=== PATIENT | female | born 1935 | race Caucasian/White ===

== ENCOUNTER → 2019-05-28 14:22 | Outpatient (BNVA) | payer MEDICARE, OTHER, SELFPAY | PROVIDERS: Family Provider Family Medicine; PCP Family Medicine; Visit Provider Specialist | DX: M25.561 Pain in right knee (principal) | CPT/HCPCS: 73560; 73565 ==

== ENCOUNTER 2019-06-12 06:00 | Outpatient (RCR) | payer MEDICARE, OTHER, SELFPAY | END 2019-06-22 23:59 | disposition home or self-care (01) | LOC: SPT 06:00 | PROVIDERS: Family Provider Family Medicine; PCP Family Medicine; Referring Provider Specialist; Visit Provider Physical Therapist | DX: M25.561 Pain in right knee (principal) | CPT/HCPCS: 97110; 97161 ==

== ENCOUNTER 2019-06-23 06:00 | Outpatient (RCR) | payer MEDICARE, OTHER, SELFPAY | END 2019-07-21 23:59 | disposition home or self-care (01) | LOC: SPT 06:00 | PROVIDERS: Family Provider Family Medicine; PCP Family Medicine; Referring Provider Specialist; Visit Provider Specialist | DX: M25.561 Pain in right knee (principal) | CPT/HCPCS: 97110 ==

== ENCOUNTER 2019-07-22 06:00 | Outpatient (RCR) | payer MEDICARE, OTHER, SELFPAY | END 2019-08-21 23:59 | disposition home or self-care (01) | LOC: SPT 06:00 | PROVIDERS: Family Provider Family Medicine; PCP Family Medicine; Referring Provider Specialist; Visit Provider Specialist | DX: M25.561 Pain in right knee (principal) | CPT/HCPCS: 97110 ==

== ENCOUNTER 2019-08-22 06:00 | Outpatient (RCR) | payer MEDICARE, OTHER, SELFPAY | END 2019-09-20 23:59 | disposition home or self-care (01) | LOC: SPT 06:00 | PROVIDERS: Family Provider Family Medicine; PCP Family Medicine; Referring Provider Specialist; Visit Provider Specialist | DX: M25.561 Pain in right knee (principal) | CPT/HCPCS: 97110 ==

== ENCOUNTER → 2019-11-15 13:34 | Outpatient (BNVA) | payer MEDICARE, OTHER, SELFPAY | PROVIDERS: Family Provider Family Medicine; PCP Family Medicine; Visit Provider Specialist | DX: M17.11 Unilateral primary osteoarthritis, right knee (principal); M25.552 Pain in left hip; Z96.642 Presence of left artificial hip joint; M21.372 Foot drop, left foot; Z96.652 Presence of left artificial knee joint | CPT/HCPCS: 73502; 73560; 73565 ==

== ENCOUNTER → 2020-03-04 15:14 | Outpatient (BNVA) | payer MEDICARE, OTHER, SELFPAY | PROVIDERS: Family Provider Family Medicine; PCP Family Medicine; Visit Provider Nurse Practitioner Family | DX: N39.0 Urinary tract infection, site not specified (principal); R35.0 Frequency of micturition | CPT/HCPCS: 81001 ==

== ENCOUNTER 2020-03-27 13:06 | Outpatient (CLI) | payer MEDICARE, OTHER, SELFPAY ==
--- NOTE | 2020-03-30 08:58 | ONC FU_ITS ---
Dr. Browning Patient Follow-Up Note Patient: Olga Scales Unit #: [id number]: 1935 Dicatated By: Michael Browning M.D.Date of Visit:Mar 27, 2020 Onc Med Follow-up/Prog Note Chief Complaint: Breast cancer. 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 She had presented with a change in her right nipple. She was evaluated with mammogram and ultrasound which showed a highly suspicious lesion in the central aspect of the right breast in the 1 to 2 o'clock position. By mammogram it measured 2.9 x 3.4 cm. She was then referred to Dr. Dominguez. He noted a firm mass in the 1 o'clock position of the right breast just under the edge of the areola. There was a 1 cm lymph node palpable in the lower aspect of the right axilla. She underwent excisional biopsy and right sentinel axillary lymph node biopsy on 11/16/2012. Pathology showed grade 2/3 infiltrating ductal carcinoma measuring 2.6 x 2.4 cm. Tumor was identified within lymphovascular spaces. There was tumor within 8 mm at the anterior margin. All other margins were greater than 1 cm. There was metastatic tumor in 2 of 3 axillary lymph nodes. The largest metastatic focus measured 1.6 cm in cross sectional diameter. The breast prognostic profile shows the tumor he are positive at 97% and LA moderately positive at 1%. It was positive for overexpression of HER-2/marvin, 3+ by IHC. The tumor did not appear to have over amplification by FISH, with the amplification ratio reported at 1.39. She opted to have breast conservation management. She initially was given adjuvant chemotherapy with TCH. As of 03/27/2013 she had completed her sixth cycle of treatment. She was then given radiation to the right breast, completed on 06/25/2013 to a total dose of 5940 cGy. She continued Herceptin thru November 2013, at which point she had completed a year of treatment. She also had started adjuvant hormonal therapy with anastrozole as of July 2013. At her scheduled followup visit on 12/27/2017 she was having significant pain in the left groin area and she had additional joint pain and lower back pain. I felt that it was likely that at least some component of the pain was related to the anastrozole, which at that point was stopped. In the meantime, x-rays of the pelvis and left hip showed severe degenerative arthritic changes of the left hip joint with protrusion of the acetabulum. It was felt to likely be secondary to osteoarthritis. She was seen by Dr. Ferguson, and she ultimately underwent left total hip arthroplasty on 07/25/2018. Her other medical illnesses include hypertension, hyperlipidemia, and asthma. She is a nonsmoker. INTERIM HISTORY: She is seen for a followup visit. She has been feeling pretty good generally. She says her energy is generally good in the morning, but terrible by afternoon. She is able to do light work. ECOG score is 1. She has good appetite. She does not have fever or night sweats. She still has hot flashes a lot. She has some shortness of breath, and she does use an albuterol inhaler twice a day. Her breathing, though, is pretty good. He does not complain of cough and she has not been having chest pain. She has no GI complaints. She has had some episodes of cystitis and she does follow with Dr. Dawkins. She has been having significant pain in her right knee. She still has the foot drop on the left. She has no other focal neurologic symptoms. She does complain that she has a lot of depression. She has chronic insomnia. Medications: Ambien 1 Tablet (of 10 mg) Oral at bedtime PRN, Bactrim DS Tablet Oral PRN, D3 High Potency 1 Tablet (of 400 Units) Oral daily, Hydrocodone-Acetaminophen 1 Tablet (of 7.5-325 mg) Oral q 4 to 6 hours PRN, Klor-Con 10 1 Tablet (of 10 meq) Tablet, controlled release Oral b.i.d., LORazepam 0.5 Tablet (of 1 mg) Oral at bedtime PRN, Lyrica 1 Capsule (of 75 mg) Oral PRN, Magnesium Oxide 1 Tablet (of 400 (241.3 Mg) mg) Tablet Oral daily, Multivitamin Women 1 Tablet Oral daily, ProAir HFA Aerosol, solution 108 (90 Base) mcg/act - 1 Inhalation daily, traZODone HCl 1 Tablet (of 50 mg) Oral at bedtime Allergies: No Known Allergies. Review of Systems: Constitutional - She says her energy is good in the morning, but terrible by afternoon. She is able to do light work. Her appetite is good. She has not had fever or night sweats. She does have hot flashes a lot. ECOG score is 1, ENMT - She has a lot of allergies. No mouth sores. No sore throat or difficulty swallowing, Hematologic/Lymphatic - No abnormal bruising or bleeding, Respiratory - She has some shortness of breath, and she uses albuterol twice daily on a schedule. Her breathing, though, has been pretty good. No cough. No pleuritic pain or hemoptysis, Cardiovascular - No angina pain. No palpitations, Gastrointestinal - No nausea or vomiting. No heartburn or acid reflux. She still has diarrhea a lot. No blood in the stool or black stools, Genitourinary (F) - She has had episodes of cystitis. She has followed with Dr. Dawkins. No hematuria. No urgency or incontinence, Musculoskeletal - She has been having significant pain in her right knee, Integumentary - No skin rash, Neurologic - No headache or dizziness. No numbness or tingling. She still requires a brace on her left leg/foot. She has no other focal neurologic symptoms, Psychiatric - She has had a lot of depression. She has chronic insomnia. She does get benefit with medication. Vital Signs: Performed on Mar 27, 2020 13:35 Height - 63.00 in Weight - 141.2 lbs (HIGH) BSA - 1.67 sq.m BMI - 25.01 Temperature - 97.7 F (LOW) Pulse - 67 /min Respiration - 20 /min BP - 187/82 mm(hg) (HIGH) O2 Sat - 96 % Pain - 0 Physical Examination: Constitutional - She looks pretty good generally, Eyes - Sclerae nonicteric. Conjunctivae clear, ENMT - No lesions noted in the oral cavity, Hematologic/Lymphatic - No cervical or clavicular adenopathy, Respiratory - Lungs are clear, Cardiovascular - Heart rhythm is regular. There is no murmur, gallop, or rub noted, Breasts - There are no breast masses noted. There is no axillary adenopathy, Abdomen - Soft. Liver and spleen are not enlarged. There is no abdominal mass or ascites noted and there is no inguinal adenopathy, Extremities - No edema, Neurologic - She has persistent foot drop on the left. There are no other focal neurologic deficits noted. Impression: 1. Patient with grade 2 infiltrating ductal carcinoma of the right breast, stage IIB, ER/LA positive and HER-2/marvin positive. 2. She underwent lumpectomy/sentinel axillary lymph node biopsy on 11/16/2012. 3. She was given adjuvant chemotherapy with 6 cycles TCH, completed in March 2013. She then completed a full year of Herceptin. 4. Following the chemotherapy she was given radiation to the right breast, completed in June 2013 to 5940 cGy. 5. She began adjuvant hormonal therapy with anastrazole in July 2013. Her other medical illnesses include: 6. Hypertension. 7. Hyperlipidemia. 8. Mild asthma. 9. Chronic anxiety. She had reported significant musculoskeletal pain and fatigue following the chemotherapy, but with gradual improvement. At her scheduled follow-up on 12/27/2017 she reported significant pain in the left hip joint. She also complained of pain in the lower back and in both knees. Anastrozole was put on hold. X-rays of the pelvis and left hip showed severe degenerative arthritis changes of the left hip joint. She was then seen by Dr. Ferguson and she ultimately underwent left total hip arthroplasty in July 2018. She has had persistent left foot drop following that procedure. She has since then been followed on observation/expectant management for the breast cancer. She has some chronic fatigue, and she is now reporting more significant pain in the right knee. Overall, though, she appears to be doing well clinically. Thus far there has been no evidence of recurrence of the breast cancer. Plan: She remains on observation/expectant management. She will be scheduled for her yearly bilateral diagnostic mammogram, which is overdue. I will see her again in 1 year. Signed By: Michael Browning M.D. <<Signature on File>>
== END 2020-03-27 13:07 | disposition home or self-care (01) ==
LOC: ONCMED 13:10
PROVIDERS: PCP Family Medicine; Visit Provider Internal Medicine Medical Oncology
DX: Z08 Encounter for follow-up examination after completed treatment for malignant neoplasm (principal); Z85.3 Personal history of malignant neoplasm of breast; Z92.21 Personal history of antineoplastic chemotherapy; Z92.23 Personal history of estrogen therapy; Z92.3 Personal history of irradiation
CPT/HCPCS: G0463

== ENCOUNTER 2020-04-07 09:39 | Outpatient (CLI) | payer MEDICARE, OTHER, SELFPAY ==
--- NOTE | 2020-04-07 09:49 | MM_ITS ---
WS: [id number] DIAGNOSTIC BILATERAL DIGITAL MAMMOGRAM WITH CAD HISTORY: HX OF BREAST CA COMPARISON: 01/05/2019 and 12/21/2016 TECHNIQUE: Bilateral craniocaudad, mediolateral oblique, and mediolateral views are submitted. Comput er aided detection utilized. Breast composition: The breasts are heterogeneously dense, which may obscure small masses. Postsurgic al scarring and volume loss in the RIGHT breast. Rodlike dystrophic calcifications throughout the RIG HT breast. There is an area of soft tissue thickening and distortion from the prior surgery and mild thickening of the trabecular pattern. Stable appearance of the LEFT breast. There are benign rodlike calcifications. No distortion. MM/[place] [id number] IMPRESSION: BI-RADS: 2-Benign FOLLOW UP: 1 Year Follow-up
== END 2020-04-07 09:40 | disposition home or self-care (01) ==
LOC: RADSHAW 09:44
PROVIDERS: PCP Family Medicine; Visit Provider Internal Medicine Medical Oncology
DX: Z85.3 Personal history of malignant neoplasm of breast (principal)
CPT/HCPCS: 77066

== ENCOUNTER → 2020-11-12 13:54 | Outpatient (BNVA) | payer MEDICARE, OTHER, SELFPAY | PROVIDERS: PCP Family Medicine; Visit Provider Specialist | DX: M25.561 Pain in right knee (principal); M17.11 Unilateral primary osteoarthritis, right knee | CPT/HCPCS: 73560; 73565 ==

== ENCOUNTER → 2021-03-04 13:09 | Outpatient (BNVA) | payer MEDICARE, OTHER, SELFPAY | PROVIDERS: PCP Family Medicine; Visit Provider Urology | DX: N39.0 Urinary tract infection, site not specified (principal) | CPT/HCPCS: 81003 ==

== ENCOUNTER 2021-04-09 11:02 | Outpatient (CLI) | payer MEDICARE, OTHER, SELFPAY ==
--- NOTE | 2021-04-09 11:22 | MM_ITS ---
WS: [id number] BILATERAL DIGITAL DIAGNOSTIC MAMMOGRAM MAMMOGRAPHY WITH CAD CLINICAL INFORMATION: HX OF BREAST CA RIGHT BREAST SORENESS. COMPARISON: April 07, 2020. TECHNIQUE: Bilateral CC, MLO, and ML views. FINDINGS: The breasts are composed of heterogeneous fibroglandular density, which can limit the detection of sm all underlying mass lesions. Stable postoperative lumpectomy changes upper outer right breast with pa renchymal fibrosis. Stable dystrophic and lucent centered calcifications. Bilateral stable secretory calcifications. No suspicious focal mass, asymmetry, calcifications, or architectural distortion. No evidence of [place] gnancy. MM/[place] [id number] IMPRESSION: BI-RADS: 2-Benign FOLLOW UP: 1 Year Follow-up Recommend return to annual diagnostic mammography.
== END 2021-04-09 11:03 | disposition home or self-care (01) ==
LOC: RADSHAW 11:07
PROVIDERS: PCP Family Medicine; Visit Provider Internal Medicine Medical Oncology
DX: Z85.3 Personal history of malignant neoplasm of breast (principal); N64.4 Mastodynia
CPT/HCPCS: 77066

== ENCOUNTER 2021-05-06 12:37 | Outpatient (CLI) | payer MEDICARE, OTHER, SELFPAY ==
--- NOTE | 2021-05-10 10:21 | ONC FU_ITS ---
Dr. Browning Patient Follow-Up Note Patient: Olga Scales Unit #: [id number]: 1935 Dicatated By: Michael Browning M.D.Date of Visit:May 06, 2021 Onc Med Follow-up/Prog Note Chief Complaint: Breast cancer. History of Present Illness: This is an 85 year-old woman with grade 2 invasive ductal carcinoma of the right breast, stage IB (T2, pN1a, M0), ER/CT positive and HER-2/marvin positive. She had presented with a change in her right nipple. She was evaluated with mammogram and ultrasound which showed a highly suspicious lesion in the central aspect of the right breast in the 1 to 2 o'clock position. By mammogram it measured 2.9 x 3.4 cm. She was then referred to Dr. Dominguez. He noted a firm mass in the 1 o'clock position of the right breast just under the edge of the areola. There was a 1 cm lymph node palpable in the lower aspect of the right axilla. She underwent excisional biopsy and right sentinel axillary lymph node biopsy on 11/16/2012. Pathology showed grade 2/3 infiltrating ductal carcinoma measuring 2.6 x 2.4 cm. Tumor was identified within lymphovascular spaces. There was tumor within 8 mm at the anterior margin. All other margins were greater than 1 cm. There was metastatic tumor in 2 of 3 axillary lymph nodes. The largest metastatic focus measured 1.6 cm in cross sectional diameter. The breast prognostic profile shows the tumor he are positive at 97% and CT moderately positive at 1%. It was positive for overexpression of HER-2/marvin, 3+ by IHC. The tumor did not appear to have over amplification by FISH, with the amplification ratio reported at 1.39. She opted to have breast conservation management. She initially was given adjuvant chemotherapy with TCH. As of 03/27/2013 she had completed her sixth cycle of treatment. She was then given radiation to the right breast, completed on 06/25/2013 to a total dose of 5940 cGy. She continued Herceptin thru November 2013, at which point she had completed a year of treatment. She also had started adjuvant hormonal therapy with anastrozole as of July 2013. At her scheduled followup visit on 12/27/2017 she was having significant pain in the left groin area and she had additional joint pain and lower back pain. I felt that it was likely that at least some component of the pain was related to the anastrozole, which at that point was stopped. In the meantime, x-rays of the pelvis and left hip showed severe degenerative arthritic changes of the left hip joint with protrusion of the acetabulum. It was felt to likely be secondary to osteoarthritis. She was seen by Dr. Ferguson, and she ultimately underwent left total hip arthroplasty on 07/25/2018. Her other medical illnesses include hypertension, hyperlipidemia, and asthma. She is a nonsmoker. INTERIM HISTORY: She is seen for a followup visit. She has been feeling pretty good generally. She has not having more problems with her right knee, and she thinks she may ultimately require a total knee arthroplasty. She has pretty good energy, though, and she has normal activity. ECOG score is 0. Her appetite is good. She has not had fever or night sweats. She still occasionally has hot flashes. She has a lot of allergy related symptoms, and she still uses her inhaler twice a day. Her breathing is okay, though. She does not complain of cough and she has not been having chest pain. She still occasionally has nausea. She is prone to having diarrhea, but she is able to manage it with Imodium. She has seen Dr. Dawkins for recurrent urinary tract infections. She also has some pain in her hips, not bad. Her back has been okay. She does not complain of headache or dizziness. She does have some residual numbness in her left leg. Medications: Ambien 1 Tablet (of 10 mg) Oral at bedtime PRN, Bactrim DS Tablet Oral PRN, D3 High Potency 1 Tablet (of 400 Units) Oral daily, Hydrocodone-Acetaminophen 1 Tablet (of 7.5-325 mg) Oral q 4 to 6 hours PRN, Klor-Con 10 1 Tablet (of 10 meq) Tablet, controlled release Oral b.i.d., LORazepam 0.5 Tablet (of 1 mg) Oral at bedtime PRN, Lyrica 1 Capsule (of 75 mg) Oral PRN, Magnesium Oxide 1 Tablet (of 400 (241.3 Mg) mg) Tablet Oral daily, Multivitamin Women 1 Tablet Oral daily, Pregabalin 1 Tablet (of 75 mg) Capsule Oral daily, ProAir HFA Aerosol, solution 108 (90 Base) mcg/act - 1 Inhalation daily, traZODone HCl 1 Tablet (of 50 mg) Oral at bedtime Allergies: No Known Allergies. Vital Signs: Performed on May 06, 2021 16:31 Height - 63.00 in Weight - 145.2 lbs (HIGH) BSA - 1.69 sq.m BMI - 25.72 Temperature - 98.3 F (LOW) Pulse - 70 /min Respiration - 16 /min BP - 158/81 mm(hg) (HIGH) O2 Sat - 96 % Pain - 0 Fatigue - 6 Physical Examination: Constitutional - She looks pretty good generally, Eyes - Sclerae nonicteric. Conjunctivae clear, ENMT - No lesions noted in the oral cavity, Hematologic/Lymphatic - No cervical or clavicular adenopathy, Respiratory - Lungs are clear, Cardiovascular - Heart rhythm is regular. There is no murmur, gallop, or rub noted, Breasts - There are no breast masses noted. There is no axillary adenopathy, Abdomen - Soft. Liver and spleen are not enlarged. There is no abdominal mass or ascites noted and there is no inguinal adenopathy, Extremities - No edema, Neurologic - She has persistent foot drop on the left. There are no other focal neurologic deficits noted. Problem List: 1. Grade 2 infiltrating ductal carcinoma of the right breast, stage IIB, ER/CT positive and HER-2/marvin positive. 2. Hypertension. 3. Hyperlipidemia. 4. Mild asthma. 5. Chronic anxiety. Problems Addressed with this Encounter and Plan: Patient with grade 2 infiltrating ductal carcinoma of the right breast, stage IIB, ER/CT positive and HER-2/marvin positive. She underwent lumpectomy/sentinel axillary lymph node biopsy on 11/16/2012. She was given adjuvant chemotherapy with 6 cycles TCH, completed in March 2013. She then completed a full year of Herceptin. Following the chemotherapy she was given radiation to the right breast, completed in June 2013 to 5940 cGy. She began adjuvant hormonal therapy with anastrazole in July 2013. Her treatment was stopped as of December 2017 due to increased musculoskeletal pain. She was then continued on expectant management for the breast cancer. During follow-up she has had further problems with degenerative arthritis. She underwent left total hip arthroplasty in July 2018, and she now thinks she may need to have a total knee arthroplasty. Overall, though, she has been doing well clinically. Thus far there has been no evidence of recurrence of her breast cancer. She remains on observation/expectant management. She will be scheduled for a follow-up visit in 1 year Signed By: Michael Browning M.D. <<Signature on File>>
== END 2021-05-06 12:38 | disposition home or self-care (01) ==
LOC: ONCMED 12:40
PROVIDERS: PCP Family Medicine; Visit Provider Internal Medicine Medical Oncology
DX: Z85.3 Personal history of malignant neoplasm of breast (principal); M79.18 Myalgia, other site; I10 Essential (primary) hypertension; E78.5 Hyperlipidemia, unspecified; J45.909 Unspecified asthma, uncomplicated; F41.9 Anxiety disorder, unspecified; Z79.899 Other long term (current) drug therapy
CPT/HCPCS: G0463

== ENCOUNTER 2021-07-07 13:08 | Outpatient (CLI) | payer MEDICARE, OTHER, SELFPAY ==
[2021-07-07 13:58] LABS: Basophils # 0.1 10^3/uL (0.0-0.1); Basophils % 0.8 %; Eosinophils # 0.1 10^3/uL (0.0-0.8); Hematocrit 44.3 % (37.0-47.0); Hemoglobin 14.2 g/dL (11.5-15.3); Lymphocytes # 1.6 10^3/uL (0.8-4.8); Lymphocytes % 22.5 %; Mean Corpuscular HGB Conc 32.1 g/dL (30.0-36.0); Mean Corpuscular Volume 90.6 fl (81-99); Mean Platelet Volume 10.5 fL (7.4-10.4); Monocytes # 0.5 10^3/uL (0.2-0.9); Monocytes % 7.3 %; Neutrophils # 4.76 10^3/uL (1.8-7.7); Neutrophils % 67.1 %; Nucleated Red Blood Cells % 0 %; Platelet Count 149 10^3/cmm (130-400); Red Blood Count 4.89 10^6/uL (4.1-5.3); Red Cell Distribution Width 13.9 % (12.1-15.1); White Blood Count 7.1 10^3/uL (4.0-10.0)
[2021-07-07 14:22] LABS: Alanine Aminotransferase 14 U/L (0-33); Albumin Level 4.5 g/dL (3.5-5.2); Alkaline Phosphatase 125 IU/L (35-105); Anion Gap 16.1 (5-19); Aspartate Amino Transferase 20 U/L (0-32); Blood Urea Nitrogen 14 mg/dL (8-23); Calcium 8.6 mg/dL (8.5-10.5); Carbon Dioxide 26 mmol/L (22-29); Chloride 104 mmol/L (98-107); Chol HDL Ratio 3.76 mg/dL (0.0-4.40); Cholesterol 158 mg/dL (0-200); Glucose 94 mg/dL (65-115); HDL Cholesterol 42 mg/dL (60-100); LDL Cholesterol Calculated 99 mg/dL (50-129); LDL HDL Ratio 2.36 RATIO (0.00-3.22); Osmolality Calculated 294 mOsm/kg (285-295); Potassium 4.1 mmol/L (3.5-5.1); Sodium 142 mmol/L (136-145); Total Bilirubin 0.4 mg/dL (0.15-1.2); Total Protein 6.5 g/dL (6.6-8.7); Triglycerides 84 mg/dL (0-150)
== END 2021-07-07 13:09 | disposition home or self-care (01) ==
PROVIDERS: PCP Family Medicine; Visit Provider Internal Medicine Medical Oncology
DX: Z85.3 Personal history of malignant neoplasm of breast (principal); I10 Essential (primary) hypertension; E78.5 Hyperlipidemia, unspecified; F41.9 Anxiety disorder, unspecified; J45.909 Unspecified asthma, uncomplicated
CPT/HCPCS: 36415; 80053; 80061; 85025

== ENCOUNTER → 2021-08-10 13:03 | Outpatient (BNVA) | payer MEDICARE, OTHER, SELFPAY | PROVIDERS: PCP Family Medicine; Visit Provider Specialist | DX: M25.561 Pain in right knee (principal) | CPT/HCPCS: 73560; 73565 ==

== ENCOUNTER → 2021-10-08 07:59 | Outpatient (BNVA) | payer MEDICARE, OTHER, SELFPAY | PROVIDERS: PCP Family Medicine; Visit Provider Specialist | DX: M17.11 Unilateral primary osteoarthritis, right knee (principal); Z71.89 Other specified counseling | CPT/HCPCS: 20610 ==

== ENCOUNTER → 2022-02-02 12:08 | Outpatient (BNVA) | payer MEDICARE, OTHER, SELFPAY | PROVIDERS: PCP Family Medicine; Visit Provider Family Medicine | DX: J45.909 Unspecified asthma, uncomplicated (principal); E78.5 Hyperlipidemia, unspecified; F41.9 Anxiety disorder, unspecified; I10 Essential (primary) hypertension | CPT/HCPCS: 80053; 80061 ==

== ENCOUNTER → 2022-02-04 09:19 | Outpatient (BNVA) | payer MEDICARE, OTHER, SELFPAY | PROVIDERS: PCP Family Medicine; Visit Provider Specialist | DX: M17.11 Unilateral primary osteoarthritis, right knee (principal) | CPT/HCPCS: 20610; J1100; J2795; J3301 ==

== ENCOUNTER → 2022-03-04 12:06 | Outpatient (BNVA) | payer MEDICARE, OTHER, SELFPAY | PROVIDERS: PCP Family Medicine; Visit Provider Urology | DX: N39.0 Urinary tract infection, site not specified (principal) | CPT/HCPCS: 81003; 99213 ==

== ENCOUNTER 2022-04-14 12:33 | Outpatient (CLI) | payer MEDICARE, OTHER, SELFPAY ==
--- NOTE | 2022-04-14 13:14 | MM_ITS ---
WS: [id number] BILATERAL 3D TOMOSYNTHESIS DIGITAL DIAGNOSTIC MAMMOGRAPHY WITH CAD CLINICAL INFORMATION: history of breast cancer COMPARISON: April 14, 2022 TECHNIQUE: Bilateral CC, MLO, and ML views. FINDINGS: Scattered fibroglandular densities bilaterally. Stable postoperative lumpectomy changes upper outer r ight breast with parenchymal fibrosis. Stable skin thickening RIGHT breast due to posttreatment heaton es. Stable dystrophic and lucent centered calcifications. Bilateral stable secretory calcifications. No suspicious focal mass, asymmetry, calcifications, or architectural distortion. No evidence of [place] gnancy. MM/[place] [id number] IMPRESSION: BI-RADS: 2-Benign FOLLOW UP: 1 Year Follow-up Recommend return to annual diagnostic mammography.
== END 2022-04-14 12:34 | disposition home or self-care (01) ==
LOC: RAD 12:33
PROVIDERS: PCP Family Medicine; Visit Provider Internal Medicine Medical Oncology
DX: Z85.3 Personal history of malignant neoplasm of breast (principal)
CPT/HCPCS: 77062; G0279

== ENCOUNTER → 2022-04-29 16:09 | Outpatient (BNVA) | payer MEDICARE, OTHER, SELFPAY | PROVIDERS: PCP Family Medicine; Visit Provider Urology | DX: N39.0 Urinary tract infection, site not specified (principal) | CPT/HCPCS: 51798; 99213 ==

== ENCOUNTER → 2022-05-03 10:41 | Outpatient (BNVA) | payer MEDICARE, OTHER, SELFPAY | PROVIDERS: PCP Family Medicine; Visit Provider Specialist | DX: M17.11 Unilateral primary osteoarthritis, right knee (principal) | CPT/HCPCS: 99214 ==

== ENCOUNTER 2022-05-20 07:30 | Outpatient (CLI) | payer MEDICARE, OTHER, SELFPAY ==
--- NOTE | 2022-05-20 07:00 | CT_ITS ---
WS: [id number] CT RIGHT KNEE, NONCONTRAST TECHNIQUE: Noncontrast CT of the RIGHT knee to include the RIGHT hip and ankle. [place] CLINICAL INFORMATION: pre operative DLP: 946.[address] scans at [facility] use at least one of these dose optimization techniques: automated e xposure control; mA and/or kV adjustment per patient size (includes targeted exams where dose is matc hed to clinical indication); or iterative reconstruction. FINDINGS: Advanced tricompartmental arthritis RIGHT knee worse in medial joint compartment with [id number] ar ticulation. Osteopenia. Hypertrophic changes along the joint line. Prior postoperative changes LEFT T DIXON. Hypertrophic patella. Small suprapatellar effusion. Small loose body in the suprapatellar effusio n. Vascular calcification. Sigmoid diverticulosis. CT/CT knee RT wo con* [id number] IMPRESSION: Images obtained for preoperative purposes.
== END 2022-05-20 07:31 | disposition home or self-care (01) ==
LOC: RAD 07:30
PROVIDERS: PCP Family Medicine; Visit Provider Specialist
DX: Z01.818 Encounter for other preprocedural examination (principal); M17.11 Unilateral primary osteoarthritis, right knee
CPT/HCPCS: 73700

== ENCOUNTER 2022-05-21 08:00 | Oncology outpatient (recurring) (ONCR) | payer MEDICARE, OTHER, SELFPAY | END 2022-05-22 23:59 | disposition home or self-care (01) | PROVIDERS: PCP Family Medicine; Visit Provider Internal Medicine Medical Oncology | DX: Z08 Encounter for follow-up examination after completed treatment for malignant neoplasm (principal); Z85.3 Personal history of malignant neoplasm of breast; Z92.3 Personal history of irradiation; Z92.21 Personal history of antineoplastic chemotherapy; Z92.25 Personal history of immunosuppression therapy | CPT/HCPCS: 99213 ==

== ENCOUNTER 2022-05-25 11:36 | Outpatient (CLI) | payer MEDICARE, OTHER, SELFPAY | END 2022-05-25 11:37 | disposition home or self-care (01) | LOC: RT 05-31 11:50 | PROVIDERS: PCP Family Medicine; Visit Provider Specialist | DX: Z13.6 Encounter for screening for cardiovascular disorders (principal); R00.1 Bradycardia, unspecified; R00.9 Unspecified abnormalities of heart beat | CPT/HCPCS: 93005 ==

== ENCOUNTER 2022-06-01 13:17 | Observation (INO) | payer MEDICARE, OTHER, SELFPAY ==
[2022-05-25 10:39] VITALS: BMI 25.7
--- NOTE | 2022-05-25 11:14 | ECG_ITS ---
[facility] Test Date: 2022-05-25 Pat Name: Olga Scales Department: Room: Gender: Female Nuclear Engineer: : 1935 Requested By: Cali Gibson Order Number: [id number] Per MD: Olivier Armstrong M.D. Measurements Intervals [place] Rate: 58 P: 259 MN: 137 QRS: 8 QRSD: 95 T: 73 QT: 433 QTc: 427 Interpretive Statements JUNCTIONAL BRADYCARDIA ABNORMAL RHYTHM ECG Compared to ECG 07/05/2018 14:53:49 Junctional rhythm no longer present Electronically Signed On 05-25-2022 20:48:31 BANK BOSS by Olivier Armstrong M.D. [id number]
[2022-05-25 12:20] LABS: Basophils # 0.1 10^3/uL (0.0-0.1); Basophils % 1.3 %; Eosinophils # 0.1 10^3/uL (0.0-0.8); Hematocrit 41.2 % (37.0-47.0); Hemoglobin 13.1 g/dL (11.5-15.3); Lymphocytes # 0.9 10^3/uL (0.8-4.8); Lymphocytes % 23.7 %; Mean Corpuscular HGB Conc 31.8 g/dL (30.0-36.0); Mean Corpuscular Hemoglobin 29.9 pg (28.0-34.0); Mean Corpuscular Volume 94.1 fl (81-99); Mean Platelet Volume 10.3 fL (7.4-10.4); Monocytes # 0.3 10^3/uL (0.2-0.9); Monocytes % 7.9 %; Neutrophils # 2.54 10^3/uL (1.8-7.7); Neutrophils % 64.8 %; Nucleated Red Blood Cells % 0 %; Platelet Count 150 10^3/cmm (130-400); Red Blood Count 4.38 10^6/uL (4.1-5.3); Red Cell Distribution Width 14.4 % (12.1-15.1); White Blood Count 3.9 10^3/uL (4.0-10.0)
[2022-05-25 12:38] LABS: Alanine Aminotransferase 15 U/L (0-33); Albumin Level 4.3 g/dL (3.5-5.2); Alkaline Phosphatase 104 U/L (35-105); Anion Gap 14.3 (5-19); Aspartate Amino Transferase 18 U/L (0-32); Blood Urea Nitrogen 21 mg/dL (8-23); Calcium 8.9 mg/dL (8.5-10.5); Carbon Dioxide 25 mmol/L (22-29); Chloride 105 mmol/L (98-107); Glucose 94 mg/dL (65-115); Osmolality Calculated 293 mOsm/kg (285-295); Potassium 4.3 mmol/L (3.5-5.1); Sodium 140 mmol/L (136-145); Total Bilirubin 0.2 mg/dL (0.15-1.2); Total Protein 6.3 g/dL (6.6-8.7)
[2022-05-25 13:50] LABS: Add Urine Microscopic? YES; Bilirubin Urine Neg (Negative); Blood Urine Trace (Negative); Glucose Urine UA Norm (Normal); Ketones Urine Negative (Negative); Leukocyte Esterase Urine 2+ (Negative); Nitrate Urine Negative (Negative); Protein Urine Trace (Negative); Urine Appearance Clear (CLEAR); Urine Color Yellow (Yellow); Urobilinogen Urine Norm (Negative); pH Urine 5 (5-7)
[2022-05-25 13:51] LABS: Bacteria Urine 1+ /hpf; Calcium Oxalate Crystals Urine 0-4 /hpf; RBC Urine RARE /hpf (0-2); Squamous Epithelial Cell Urine 0-4 /hpf (0-5); Triple Phosphate Crystal Urine 80-100 /hpf; WBC Urine 0-4 /hpf (0-5)
--- NOTE | 2022-05-25 14:14 | P.ANESASSM_ITS ---
Pre-Anesthetic Assessment Height/Weight: Height 1.59 m Weight 64.864 kg Operation Date: 06/01/22 07:00 Proposed Procedures p Germán Robot Total Knee Arthroplasty 05620,M17.10(Right) - Dina Ferguson MD Familial anesthetic complications: none Was Beta Anisha taken within 24 hours: N/A Was Clonidine taken within 24 hours: N/A Social No alcohol and No tobacco Exam alert, oriented x 3, clear to auscultation bilaterally and regular rate & rhythm Airway Submandibular: within normal limits Cervical ROM: within normal limits Mallampati: Class II Dentition: full Pulmonary Asthma Metabolic Hyperlipidemia Musc/skel Osteoarthritis/DJD Neuropsych Anxiety h/o left foot drop Anesthetic Plan ASA status: 2 Anesthesia: Regional (specify below) (SAB with adductor blk) Medications/Allergies Home Medications Medication Instructions Recorded Confirmed Last Taken Type 1/2 inch heel lift #1 ea 11/15/19 05/21/22 Unknown Rx AFO #1 ea 12/04/19 05/21/22 Unknown Rx albuterol sulfate 90 mcg/actuation 2 puff inhalation Q6H PRN S0B 03/04/21 05/25/22 Unknown History aerosol inhaler cranberry 400 mg capsule 400 mg PO DAILY 03/04/21 05/25/22 Unknown History lisinopril 5 mg tablet 5 mg PO DAILY 03/04/21 05/25/22 Unknown History potassium chloride 10 mEq 10 meq PO DAILY 03/04/21 05/25/22 Unknown History capsule,extended release turmeric root extract 500 mg 500 mg PO DAILY 03/04/21 05/25/22 Unknown History capsule pregabalin 75 mg capsule (Lyrica) 75 mg PO DAILY PRN pain #90 caps 02/02/22 05/25/22 Unknown Rx lorazepam 1 mg tablet 1 mg PO TID PRN anxiety #60 tabs 02/08/22 05/25/22 Unknown Rx trazodone 50 mg tablet 50 mg PO .at bedtime #30 tabs 02/08/22 05/25/22 Unknown Rx zolpidem 10 mg tablet 10 mg PO BEDTIME 30 days #30 tabs 02/28/22 05/25/22 Unknown Rx magnesium oxide 400 mg (241.3 mg 400 mg PO DAILY #30 tabs 04/09/22 05/25/22 Unknown Rx magnesium) tablet Allergies Allergy/AdvReac Type Severity Reaction Status Date / Time No Known Allergies Allergy Verified 05/25/22 10:35 [facility] Anesthesia Medical History (Updated 05/22/22 @ 09:01 by Michael Browning MD) Anxiety Asthma Breast cancer HTN (hypertension) Hyperlipidemia Osteoarthritis Recurrent UTI Surgical History (Updated 05/22/22 @ 08:59 by Michael Browning MD) H/O partial mastectomy (11/16/12) Right breast lumpectomy with axillary sentinel lymph node biopsy History of left hip replacement History of removal of Port-a-Cath Hx of cholecystectomy Hx of hysterectomy Hx of nasal polypectomy Family History Mother , 98 Dementia Father , 85 No problems noted. Social History Smoking and tobacco status: never smoked Alcohol intake: current Alcohol intake frequency: holidays/special occasions only Marital status: Current occupational status: retired History of recent travel: Yes ([place]) Data Anesthesia 05/25/22 11:00 05/25/22 11:00 Short CBC 05/25/22 Range/Units 11:00 WBC 3.9 L (4.0-10.0) 10^3/uL Hgb 13.1 (11.5-15.3) g/dL Hct 41.2 (37.0-47.0) % MCV 94.1 (81-99) fl Plt Count 150 (130-400) 10^3/cmm Neut % (Auto) 64.8 % Neut # (Auto) 2.54 (1.8-7.7) 10^3/uL BMP 05/25/22 11:00 Sodium 140 Potassium 4.3 Chloride 105 Carbon Dioxide 25 BUN 21 Creatinine 0.7 Glucose 94 Calcium 8.9 Liver Function 05/25/22 Range/Units 11:00 Total Bilirubin 0.2 (0.15-1.2) mg/dL AST 18 (0-32) U/L ALT 15 (0-33) U/L Alkaline Phosphatase 104 (35-105) U/L Albumin 4.3 (3.5-5.2) g/dL Urine 05/25/22 Range/Units 11:10 Urine Color Yellow (Yellow) Urine Appearance Clear (CLEAR) Urine pH 5 (5-7) Ur Specific [place] 1.020 (1.005-1.030) Urine Protein Trace (Negative) Urine Glucose (UA) Norm (Normal) Urine Ketones Negative (Negative) Urine Nitrate Negative (Negative) Urine Bilirubin Neg (Negative) Ur Leukocyte Esterase 2+ H (Negative) Urine RBC Rare (0-2) /hpf Urine WBC 0-4 H (0-5) /hpf Cardiac Studies: No Data to Display
[2022-06-01] VITALS (27 sets, daily range): BP systolic 101–173; BP diastolic 46–83; PULSE 57–72; RESP 11–20; TEMP 36.1–36.5; O2SAT 93–100
--- NOTE | 2022-06-01 06:33 | P.ANESUD_ITS ---
Pre-Anesthetic Update Pre-Anesthetic Assessment: Date of Surgery/Procedure: 06/01/22 Preop Marisela gnosis: Severe degenerative osteoarthritis right knee Proposed Procedure: Operation Date: 06/01/22 07:00 Proposed Procedures p Germán Robot Total Knee Arthroplasty 86926,M17.10(Right) - Dina Ferguson MD Any changes to Pre-Anesthetic Assessment?: No Last Intake: Intake Last Liquid Date 05/31/22 Last Liquid Time 23:30 Last Solid Date 05/31/22 Last Solid Time 21:30 Vitals: Temperature 97.5 F L 06/01/22 05:55 Temperature Source Temporal Artery S can 06/01/22 05:55 Pulse Rate 62 06/01/22 05:55 Respiratory Rate 18 06/01/22 05:55 Blood Pressure 173/75 06/01/22 05:55 Blood Pressure Venus n 107 06/01/22 05:55 Pulse Oximetry 96 06/01/22 05:55 Oxygen Delivery Me thod 06/01/22 06:01 Exam: Pre-Anes Outpt Exam: alert, oriented x 3, clear to auscultation bilaterally and regular rate & rhythm Cardiac Studies: No Data to Display
--- NOTE | 2022-06-01 06:33 | ANES.PROC ---
Anesthesia Procedures Procedure/Date: 06/01/22 Nerve Block ^: Nerve Block 1: Main Anesthesia: spinal anesthesia block Time Out Performed: Yes Consent: requested by attending/covering physician, from patient, from other, risks and benefits reviewed and patient agrees to proceed Nerve block location: adductor canal (R) Anesthesia monitors applied: pulse oximetry, EKG, BP cuff and oxygen Nerve block position: supine Anesthetic Used: ropivicaine 0.5% (30 ml) and with decadron (4 mg) Ultrasound used to: recognize landmarks and visualize and ID femerol nerve Nerve Stimulator Used?: No Interscalene/Femoral BLK: 4 stimuplex 21 g needle used for position and inplane approach, visualize local anesthetic spread and no vascular puncture identified Injection: neg aspiration of heme and paresthesia +/- Patient Tolerated Procedure: well and no complications Complications: none
[2022-06-01] MEDS: acetaminophen 1,000 MG/100 ML PIGGYBACK 400 MG IV ×3 (06:38→20:23)
[2022-06-01] MEDS: CELEcoxib 200 mg Capsule 400 MG PO (06:39)
[2022-06-01] MEDS: sodium chloride 0.9% 1,000 ML 30 ML IV (06:40)
--- NOTE | 2022-06-01 06:57 | P.HPUD_ITS ---
Surgery/Procedure H&P Update DATE OF PROCEDURE: June 01, 2022 DATE H&P PERFORMED: 05/03/22 H&P UPDATE INFORMATION: I have reviewed H&P completed within last 30 days, No changes to prior documentation and H&P is in [facility] [place] on date indicated PREOP DIAGNOSIS: Severe degenerative osteoarthritis right knee PLANNED PROCEDURE: Operation Date: 06/01/22 07:00 Proposed Procedures p Germán Robot Total Knee Arthroplasty 62019,M17.10(Right) - Dina Ferguson MD Related Problem List Diagnoses (1) Primary osteoarthritis of right knee:
[2022-06-01] MEDS: ceFAZolin 2,000 MG in sodium chloride 0.9% (plus) 50 ML 100 MG IV ×3 (07:30→23:14)
[2022-06-01] MEDS: ceFAZolin 1,000 mg SDV 2000 MG IRRIGATION (09:19)
[2022-06-01] MEDS: vancomycin 1,000 MG SDV 1000 MG XX (09:21)
[2022-06-01] MEDS: sodium chloride 0.9% 1,000 ML 100 ML IV (09:42)
--- NOTE | 2022-06-01 10:22 | SUR.OPER ---
[id number] FAMILY UPDATED TO PROGRESS VIA GIS MANAGER 1017 FAMILY UPDATED TO PROGRESS VIA GIS MANAGER
--- NOTE | 2022-06-01 10:59 | XRR_ITS ---
PROCEDURE INFORMATION: Exam: XR Right Knee Exam date and time: 06/01/2022 11:18 AM Age: 86 years old Clinical indication: Device placement; Joint replacement hardware; Prior surgery; Surgery date: Post-operative (0-2 days); Surgery type: Status post right total knee arthroplasty TECHNIQUE: Imaging protocol: Radiologic exam of the Right knee. Views: 1 or 2 views. COMPARISON: CT knee RT wo con* [id number] 05/20/2022 7:36 AM FINDINGS: Bones/joints: The patient has had a total knee arthroplasty. No periprosthetic lucency. No fracture. No dislocation. Soft tissues: Postoperative soft tissue changes. XR/XR knee RT 1-2V [id number] IMPRESSION: Postoperative changes.
--- NOTE | 2022-06-01 11:17 | PM.OP ---
Operative Report Date of procedure: June 01, 2022 Pre-op diagnosis: Severe degenerative osteoarthritis right knee Post-op diagnosis: Severe degenerative osteoarthritis right knee Post-op findings: Severe degenerative osteoarthritis with osteophytes, varus deformity, and bone loss. Procedure done: Germán assisted right total knee arthroplasty Implants: The [place] total knee system with a size 3 triathlon beaded cruciate retaining femur right, a triathlon titanium tibial component size 2 beaded, a triathlon X3 tibial bearing CS insert size 2 X 13 mm and a beaded triathlon titanium asymmetric patella size 29 x 9 mm Specimens removed/disposition: Bone, disposed of Pathology: none sent Surgeon: Dina Ferguson Junior Media Buyer: [facility] Estimated blood loss (mL): 25 Tourniquet time (min): 102 (At 250 mmHg) IV fluids (mL): 1,400 Urine output (mL): 350 Complications: None Findings: Severe degenerative osteoarthritis with varus deformity and large osteophytes. Condition: stable Disposition: PACU (Then to floor for postoperative rehabilitation and pain management) Brief History: Olga Scales is an established 86 year old female patient who is here today for same-day right total knee arthroplasty.? Patient has tried multiple conservative therapies in the past with little relief from the pain. Patient rated pain at 8/10 at her last office visit. At that time, the patient was scheduled for surgery. Consents were signed and questions were answered. She had the preoperative planning CT is required for Germán assisted surgical intervention. Postoperatively, she will be admitted under observation status for postoperative rehabilitation and pain management. Procedure: The patient was brought to the operating theater, and after undergoing attempted spinal anesthesia with conversion to general anesthetic per intubation which was also supplemented with adductor canal block and MAC, ASA 3, the right lower extremity was prepped with Dura-Prep and draped in usual fashion following placement of a tourniquet high on the leg. The leg was then draped free. Following prepping and draping, the leg was exsanguinated, and the tourniquet was elevated to 275 mmHg for a total tourniquet time of 102 minutes.? Prior to elevation of the tourniquet, but following exposure of the site of surgery, a surgical pause was performed. At the time of the surgical pause, we confirmed the site and side of surgery. Additionally, we confirmed the appropriate and timely administration of preoperative antibiotics, Ancef 2 g and Transexemic acid 1 g.? The availability of equipment was confirmed, and the patient's identity was verbalized as well.? An additional transexemic acid 1 g was given at the end of the surgical procedure as well. Following the surgical pause, an incision was made centering over the patella continuing proximally and distally as necessary to allow access to the knee joint. Dissection continued through skin and soft tissues using a scalpel. Hemostasis was obtained using electrocautery. The skin incision was followed by a median parapatellar arthrotomy. The leg was extended and the patella was able to be displaced laterally.? Appropriate arrays and markers were placed in appropriate position for use of the Germán.? Preoperative planning had been accomplished and was discussed in detail with the [facility] product sales representative.? Intraoperative mapping of the femur and tibia was accomplished after the arrays were placed.? Internal markers were also placed.? Once we had accomplished the Germán mapping, we began the appropriate resections for placement of the prosthesis.? The plan was for a cruciate retaining right total knee arthroplasty. Once appropriate mapping had been accomplished retraction was established using manual retraction by surgical technicians and also the Germán leg positioner and retractors.? The knee was evaluated.? There was a significant osteoarthritic change.? Appropriate bone resection was accomplished using the Germán.? The femur was sized to a size 3.? Following femoral cuts, attention was directed to the tibia.? Osteophytes were removed prior to this portion of the procedure.? We had performed a minimal medial release at the beginning of the procedure to allow for placement of the array.? Proximal tibia was evaluated and it was felt that appropriate size for the tibia was a size 2. Initially, planning had been accomplished for a size 3, and we evaluated the proximal tibia for a size 3, but there was a postero medial deficiency, and therefore was felt that a size 2 tibia was a more appropriate sized component. A trial reduction was accomplished after osteophytes have been removed as well as the medial and lateral menisci.? We had removed the anterior cruciate ligament at the beginning of the case and preserved the posterior cruciate ligament.? Trial reduction was accomplished with a size 3 femoral cruciate retaining component and a size 2 CS tibial bearing insert which was 9 mm in thickness, but this was increased through travel to size 11 mm to a final size of 13 mm during the trial reductions following further medial release.? With this, we had excellent stability, full extension, and appropriate alignment.? As the patient had a varus deformity soft tissue releases were accomplished. Posterior release, however, was not required.? Trial components were removed after the femur had been drilled.? Prior to removal of the tibial tray which had been pinned in position with appropriate rotation as determined by the Germán plan, we broached the tibia.? Subsequently, the 4 drill holes were made for the prosthetic component.? All trial components were removed, and the wound was irrigated.? Plans were made for insertion of the prosthetic components.? Prior to this, the patella was manually prepared.? After resection of the articular surface with the jogging system, it was measured and measured a 29 mm patella.? We resected approximately 7 mm of patella and patellar height was restored with the patellar component. Once again, the wound was irrigated.? The Tritanium tibia was impacted into position.? The beaded femur was then impacted into position in a cementless fashion. The CS tibial insert was placed prior to placement of the femoral component. The patella was pressed into position with a patellar clamp.? Exparel was injected about the components deep and superficially.? The knee was then copiously irrigated with betadine and saline and suctioned dry. Attention was then directed to closure. Closure was accomplished with 0 Vicryl in the fascial tissues.? This was followed by Surgiflo and vancomycin powder.? Following this, a 2-0 Monocryl was used in the subcutaneous tissues, and the skin was closed with skin radha.? Care was taken to assure an excellent subcutaneous as well as skin closure.? A sterile dressing was then placed consisting of Dermabond Prineo, OpSite, sterile soft roll including over the foot, and an Lalo wrap. The patient was returned the Recovery Room in a satisfactory condition. X-rays were obtained and reviewed there.? The patient will be discharged to the floor for postoperative rehabilitation and pain management. Related Problem List Diagnoses (1) Primary osteoarthritis of right knee:
[2022-06-01] MEDS: fentaNYL 50 mcg/mL INJ 2mL IVP ×2 (11:26→11:50)
--- NOTE | 2022-06-01 12:10 | PC.NURSE ---
Addendum entered by Melody Quiñones RN 06/01/22 12:12: deeply. SaO2 mid 90s. Oxygen applied via NC @ 2 liters with improvement. Original Note: 1200 patient stated she feels like she cant breath
[2022-06-01] MEDS: albuterol 2.5 mg/3 mL Neb INHALATION (12:21)
--- NOTE | 2022-06-01 12:25 | PC.NURSE ---
Dr. Ferguson updated. Breathing tx given
--- NOTE | 2022-06-01 14:03 | ANE.PACU2 ---
Inpatient post-anesthesia follow up: Airway intact: Yes Vital signs: Temperature 97.4 F Pulse Rate 59 Respiratory Rate 11 Blood Pressure 129/82 Pulse Oximetry 97 Oxygen Delivery Me thod Room Air Oxygen Flow Rate 8 Fraction of Inspir ed Oxygen Hydration adequate: Yes Nausea and vomiting: No Pain level: 1 Mental status: Baseline
[2022-06-01] MEDS: chlorhexidine gluconate 0.12% Btl 473 mL 30 ML MUCOUS MEM ×3 (14:24→20:12)
[2022-06-01] MEDS: CELEcoxib 200 mg Capsule PO (16:35)
[2022-06-01] MEDS: calcium carbonate 500 mg Chew Tablet 1000 MG PO (16:35)
[2022-06-01] MEDS: mupirocin oint 22 gm 1 APPLIC NASAL (16:36)
[2022-06-01] MEDS: iron polysaccharide complex 150 mg Capsule PO (16:36)
[2022-06-01] MEDS: zolpidem 5 mg Tablet 10 MG PO (20:13)
[2022-06-01] MEDS: oxyCODONE 5 mg IR Tab/Cap PO (21:54)
[2022-06-02] VITALS (7 sets, daily range): BP systolic 92–98; BP diastolic 46–64; PULSE 62–69; RESP 15–18; TEMP 36.3–37; O2SAT 93–98
[2022-06-02] MEDS: oxyCODONE 5 mg IR Tab/Cap PO ×2 (02:08→09:50)
[2022-06-02] MEDS: LORazepam 1 mg Tablet PO (02:17)
[2022-06-02] MEDS: CELEcoxib 200 mg Capsule PO (05:02)
[2022-06-02] MEDS: acetaminophen 1,000 MG/100 ML PIGGYBACK 400 MG IV (05:03)
[2022-06-02 05:49] LABS: Basophils % 0.3 %; Hematocrit 31.6 % (37.0-47.0); Lymphocytes # 1.1 10^3/uL (0.8-4.8); Lymphocytes % 16.7 %; Mean Corpuscular HGB Conc 31.6 g/dL (30.0-36.0); Mean Corpuscular Hemoglobin 29.8 pg (28.0-34.0); Mean Platelet Volume 10.1 fL (7.4-10.4); Monocytes # 0.8 10^3/uL (0.2-0.9); Neutrophils # 4.47 10^3/uL (1.8-7.7); Neutrophils % 70.5 %; Nucleated Red Blood Cells % 0 %; Platelet Count 119 10^3/cmm (130-400); Red Blood Count 3.36 10^6/uL (4.1-5.3); Red Cell Distribution Width 14.5 % (12.1-15.1); White Blood Count 6.3 10^3/uL (4.0-10.0)
[2022-06-02 06:21] LABS: Anion Gap 12.3 (5-19); Blood Urea Nitrogen 20 mg/dL (8-23); Carbon Dioxide 22 mmol/L (22-29); Chloride 105 mmol/L (98-107); Glucose 112 mg/dL (65-115); Osmolality Calculated 283 mOsm/kg (285-295); Potassium 4.3 mmol/L (3.5-5.1); Sodium 135 mmol/L (136-145)
[2022-06-02] MEDS: magnesium oxide 400 mg tablet PO (07:50)
[2022-06-02] MEDS: calcium carbonate 500 mg Chew Tablet 1000 MG PO (07:50)
[2022-06-02] MEDS: cholecalciferol (vitamin D3) 1,000 unit Tablet 1000 UNIT PO (07:50)
[2022-06-02] MEDS: multivitamin therapeutic Tablet 1 TAB PO (07:50)
[2022-06-02] MEDS: lisinopril 5 mg Tablet PO (07:51)
[2022-06-02] MEDS: aspirin 325 mg EC Tablet PO (07:51)
[2022-06-02] MEDS: iron polysaccharide complex 150 mg Capsule PO (07:52)
[2022-06-02] MEDS: potassium chloride ER 10 mEq Tablet PO (07:52)
[2022-06-02] MEDS: ceFAZolin 2,000 MG in sodium chloride 0.9% (plus) 50 ML 100 MG IV (07:52)
[2022-06-02] MEDS: chlorhexidine gluconate 0.12% Btl 473 mL 30 ML MUCOUS MEM (08:09)
--- NOTE | 2022-06-02 10:24 | PC.CHAP ---
Pastoral Care Encounter/Spiritual Assessment Type of Contact [] Declined movie shot camera operator visit [] Patient/Family/Request visit [] Outpatient visit [] Follow-up visit [] Physician referral [] Code/Alert [x] Routine visit [] Staff referral [] Actively dying [] Patient sleeping [] Family support [] [] Out of room [] Palliative care [] [] Receiving care in room [] Pre-surgical visit [] Trauma [] Long length of stay [] ICU visit [] Other: Relational/Emotional Strength [x] Patient feels connected with others/family/visitors/staff [] Distress [] Loneliness/isolation [] Abandonment Spirituality of Patient [x] Person of Ivy [] Attends Adventism of their Ivy [x] Believes in Prayer [] Reads Bible or Zoroastrianism materials [] There are Spiritual issues to be addressed Wholesale Agronomist Interventions [x] Prayer [x] Active listening [x] Non-anxious presence [] Spiritual/emotional support [] Crisis/trauma care [] Spiritual counseling [] Bereavement support [] Provided bereavement packet [] Provided Bible/devotional materials [] Provided toy/stuffed animal, coloring book to patient or family member [] Provided Communion [] Anointing/[place] [] Salvation [] Completed spiritual assessment [] Other: Impact on Illness or Injury [] Angry [] Fearful [] Anxious [] Often cries [] Exhaustion [] Unable to work [] Unable to attend shinto [] Unable to walk/stand [] Unable to read [] Unable to drive [] Unable to eat/drink [] Unable to sleep [] Unable to be with family [] Patient intubated [] Other: Summary paptient in pain Time spent with patient 10 min
[2022-06-02] MEDS: acetaminophen 500 mg Tablet 1000 MG PO (11:08)
--- NOTE | 2022-06-02 13:19 | P.DS_ITS ---
Discharge Providers Date of Admission: 06/01/22 13:17 Date of Discharge: June 02, 2022 Attending Provider at Admission: Dina Ferguson MD Attending Provider at Discharge: Dina Ferguson MD Primary Care Provider: Trae Hill DO Diagnoses at Discharge Discharge Diagnosis (1) Status post total right knee replacement using cement: Status: Acute Permanent problem details: Date of procedure: June 01, 2022 Diagnosis: Severe degenerative osteoarthritis right knee with osteophytes, varus deformity, and bone loss. Procedure done: Germán assisted right total knee arthroplasty Implants: The [place] total knee system with a size 3 triathlon beaded cruciate retaining femur right, a triathlon titanium tibial component size 2 beaded, a triathlon X3 tibial bearing CS insert size 2 X 13 mm and a beaded triathlon titanium asymmetric patella size 29 x 9 mm (2) Primary osteoarthritis of right knee: Status: Acute Reason for Visit Reason for Visit: M17.11 Brief History: Olga Scales is an established 86 year old female patient who is here today for same-day right total knee arthroplasty.? Patient has tried multiple conservative therapies in the past with little relief from the pain.? Patient rated pain at 8/10 at her last office visit.? At that time, the patient was scheduled for surgery.? Consents were signed and questions were answered.? She had the preoperative planning CT is required for Germán assisted surgical intervention.? Postoperatively, she will be admitted under observation status for postoperative rehabilitation and pain management. Hospital Course Hospital Course Patient was admitted for same-day surgery in the form of Germán assisted right total knee arthroplasty. She had significant deformity as well as a flexion contracture. She also had large osteophytes. She underwent a surgical procedure uneventfully. Postoperatively, she was brought to the floor under observation status for postoperative rehabilitation and pain management. Patient did well, and worked with physical therapy. She did have some dizziness and hypotension with her initial ambulatory attempt, but this resolved as she continued to drink fluids. She was deemed safe for discharge home, and therefore, she was discharged home with home therapy and will follow up with me in the office as scheduled. Physical Exam Const: COMMON NORMALS: no acute distress, average body habitus, patient oriented x3 and alert GENERAL APPEARANCE: cooperative and comfortable ORIENTATION/CONSCIOUSNESS: Yes awake HENMT: COMMON NORMALS: normocephalic and atraumatic HEAD & SCALP: normocephalic and atraumatic Eye: GENERAL EYE: appearance normal, both eyes and all related structures Chest: COMMONS NORMALS: normal inspection of the chest Resp: COMMON NORMALS: normal respiratory effort EFFORT & INSPECTION: Yes able to speak in complete sentences and Yes symmetric chest movement Extremity: NARRATIVE EXTREMITY EXAM: Outer dressing was removed from the right knee. Patient is neurologically intact with no sign of DVT. There is minimal swelling. There is minimal ecchymosis. RIGHT LOWER EXTREMITY: Yes knee joint (Dressing is dry and intact) Right knee: Yes ROM (Able to straight leg raise) and Yes neurovascular exam (Intact with no evidence of DVT) Neuro: COMMON NORMALS: patient oriented x3 SENSORIUM/ORIENTATION: Yes alert Psych: COMMON NORMALS: mental status grossly normal APPEARANCE: Yes grossly normal ATTITUDE: Yes calm and Yes engaged ATTENTION/CONCENTRATION: Yes attention grossly intact Skin: COMMON NORMALS: no rashes or lesions noted GENERAL SKIN EXAM: no rashes or lesions noted Urinary Catheter Management: Ramírez: Cath Placed During This Visit: yes, but has since been removed by the nurse Reason for Continuing Indwelling Catheter: Decision to DC Catheter Urinary Catheter Date of Insertion: 06/01/22 Urinary Catheter Time of Insertion: 08:10 Date Urinary Catheter Removed: 06/02/22 Time Urinary Catheter Discontinued: 06:00 Discharge Data Studies Completed and Pending Completed Studies During Hospitalization Category Date Time Status XR knee RT 1-2V 45030 Routine Exams 06/01/22 10:59 Completed Radiology Impressions Knee X-Ray 06/01/22 10:59 IMPRESSION: Postoperative changes. Laboratory Results WBC 6.3 10^3/uL (4.0-10.0) 06/02/22 05:30 RBC 3.36 10^6/uL (4.1-5.3) L 06/02/22 05:30 Hgb 10.0 g/dL (11.5-15.3) L 06/02/22 05:30 Hct 31.6 % (37.0-47.0) L 06/02/22 05:30 MCV 94.0 fl (81-99) 06/02/22 05:30 MCH 29.8 pg (28.0-34.0) 06/02/22 05:30 MCHC 31.6 g/dL (30.0-36.0) 06/02/22 05:30 RDW 14.5 % (12.1-15.1) 06/02/22 05:30 Plt Count 119 10^3/cmm (130-400) L 06/02/22 05:30 MPV 10.1 fL (7.4-10.4) 06/02/22 05:30 Neut % (Auto) 70.5 % 06/02/22 05:30 Lymph % (Auto) 16.7 % 06/02/22 05:30 [place] % (Auto) 12.0 % 06/02/22 05:30 Eos % (Auto) 0.0 % 06/02/22 05:30 Baso % (Auto) 0.3 % 06/02/22 05:30 Neut # (Auto) 4.47 10^3/uL (1.8-7.7) 06/02/22 05:30 Lymph # (Auto) 1.1 10^3/uL (0.8-4.8) 06/02/22 05:30 [place] # (Auto) 0.8 10^3/uL (0.2-0.9) 06/02/22 05:30 Eos # (Auto) 0.0 10^3/uL (0.0-0.8) 06/02/22 05:30 Baso # (Auto) 0.0 10^3/uL (0.0-0.1) 06/02/22 05:30 Nucleated RBC % (auto) 0 % 06/02/22 05:30 Nucleated RBCs # 0.0 /100WBC 06/02/22 05:30 Sodium 135 mmol/L (136-145) L 06/02/22 05:30 Potassium 4.3 mmol/L (3.5-5.1) 06/02/22 05:30 Chloride 105 mmol/L (98-107) 06/02/22 05:30 Carbon Dioxide 22 mmol/L (22-29) 06/02/22 05:30 Anion Gap 12.3 (5-19) 06/02/22 05:30 BUN 20 mg/dL (8-23) 06/02/22 05:30 Creatinine 0.7 mg/dL (0.5-0.9) 06/02/22 05:30 GFR Calculation Not Reportable 06/02/22 05:30 Glucose 112 mg/dL (65-115) 06/02/22 05:30 Calculated Osmolality 283 mOsm/kg (285-295) L 06/02/22 05:30 Calcium 8.0 mg/dL (8.5-10.5) L 06/02/22 05:30 Total Bilirubin 0.2 mg/dL (0.15-1.2) 05/25/22 11:00 AST 18 U/L (0-32) 05/25/22 11:00 ALT 15 U/L (0-33) 05/25/22 11:00 Alkaline Phosphatase 104 U/L (35-105) 05/25/22 11:00 Total Protein 6.3 g/dL (6.6-8.7) L 05/25/22 11:00 Albumin 4.3 g/dL (3.5-5.2) 05/25/22 11:00 Globulin 2.0 g/dL (1.3-4.6) 05/25/22 11:00 Urine Color Yellow (Yellow) 05/25/22 11:10 Urine Appearance Clear (CLEAR) 05/25/22 11:10 Urine pH 5 (5-7) 05/25/22 11:10 Ur Specific [place] 1.020 (1.005-1.030) 05/25/22 11:10 Urine Protein Trace (Negative) 05/25/22 11:10 Urine Glucose (UA) Norm (Normal) 05/25/22 11:10 Urine Ketones Negative (Negative) 05/25/22 11:10 Urine Blood Trace (Negative) H 05/25/22 11:10 Urine Nitrate Negative (Negative) 05/25/22 11:10 Urine Bilirubin Neg (Negative) 05/25/22 11:10 Urine Urobilinogen Norm mg/dL (Negative) 05/25/22 11:10 Ur Leukocyte Esterase 2+ (Negative) H 05/25/22 11:10 Urine RBC Rare /hpf (0-2) 05/25/22 11:10 Urine WBC 0-4 /hpf (0-5) H 05/25/22 11:10 Ur Squamous Epith Cells 0-4 /hpf (0-5) H 05/25/22 11:10 Calcium Oxalate Crystal 0-4 /hpf H 05/25/22 11:10 Triple Phos Crystals 80-100 /hpf H 05/25/22 11:10 Amorphous Sediment Not Reportable 05/25/22 11:10 Urine Bacteria 1+ /hpf (NONE) H 05/25/22 11:10 Vitals Last Vital Signs Temp 97.3 F L 06/02/22 12:00 Pulse 62 06/02/22 12:00 Resp 18 06/02/22 12:00 BP 92/46 06/02/22 12:00 Pulse Ox 93 06/02/22 12:00 O2 Del Method 06/02/22 12:00 O2 Flow Rate 8 06/01/22 12:30 Discharge Plan Discharge Patient Disposition: Home Health Service Condition: Stable Prescriptions: New oxycodone 5 mg Tablet 5 mg PO Q4H PRN (Reason: Moderate Pain) 7 Days Qty: 30 0RF aspirin 325 mg Tablet,Delayed Release (Dr/Ec) 325 mg PO DAILY 30 Days Qty: 30 0RF acetaminophen 500 mg Tablet 1,000 mg PO Q8H 15 Days Qty: 0 0RF celecoxib 200 mg Capsule 200 mg PO 1XD Qty: 30 0RF Continued (DME) 1/2 inch heel lift See Rx Instructions .Route .MEDSUPPLY Qty: 1 0RF Rx Instructions: As directed albuterol sulfate 90 mcg/actuation HFA aerosol inhaler 2 puff inhalation Q6H PRN (Reason: S0B) potassium chloride 10 mEq capsule, extended release 10 meq PO DAILY lisinopril 5 mg tablet 5 mg PO DAILY turmeric root extract 500 mg capsule 500 mg PO DAILY cranberry 400 mg capsule 400 mg PO DAILY Rx Instructions: administer with a meal pregabalin [Lyrica] 75 mg capsule 75 mg PO DAILY PRN (Reason: pain) Qty: 90 3RF (DME) AFO See Rx Instructions .Route .MEDSUPPLY Qty: 1 0RF Rx Instructions: As directed trazodone 50 mg tablet 50 mg PO .at bedtime Qty: 30 3RF lorazepam 1 mg tablet 1 mg PO TID PRN (Reason: anxiety) Qty: 60 3RF zolpidem 10 mg tablet 10 mg PO BEDTIME 30 Days Qty: 30 5RF magnesium oxide 400 mg (241.3 mg magnesium) tablet 400 mg PO DAILY Qty: 30 3RF sulfamethoxazole-trimethoprim [Bactrim DS] 800-160 mg tablet 1 tab PO BID 10 Days Qty: 20 0RF Rx Instructions: Take 1 tablet twice daily for ten days Discharge Orders: Discharge Order (Routine); Ordered 06/02/22 Ordered By: Dina Ferguson Referrals: Dina Ferguson MD [Physician] - 06/16/22 5:00 am Discharge Diet: Advance as tolerated and Usual diet Discharge Activity: Increase activity as tolerated, Limit activity as instructed, Use walker/crutches as instructed and As per PT/OT instructions Patient Instructions: Opioid Safety Activity Restrictions/Additional Instructions: Ice and elevation to right lower extremity. You may shower and get your clear dressing wet, but do not submerge in water. Weightbearing as tolerated. Range of motion, strengthening, and gait training with physical therapy. Discharge Attestations Time Spent in Discharge Care*: greater than 30 min Specific Discharge Activities: educating patient, educating and/or supporting family/caregiver, documenting/other paperwork and evaluating patient/reviewing data Quality Metrics Clinical Quality Measures [ No reported AMI, CVA or VTE this stay] Coding Level of Care Code Acute g [facility] note Exam Comprehensive Diagnoses Status post total right knee replacement using cement Z96.651 Primary osteoarthritis of right knee M17.11
== END 2022-06-02 14:29 | disposition home health service (06) ==
LOC: MEDSURG 19:36
PROVIDERS: Admitting Provider Specialist; PCP Family Medicine; Visit Provider Specialist
PROC: 8E0Y0CZ Robotic Assisted Procedure of Lower Extremity, Open Approach (ICD-10-PCS; CPT 27447; principal; 2022-06-01 07:00)
DX: M17.11 Unilateral primary osteoarthritis, right knee (principal); J45.909 Unspecified asthma, uncomplicated; E78.5 Hyperlipidemia, unspecified; F41.9 Anxiety disorder, unspecified; I10 Essential (primary) hypertension; Z85.3 Personal history of malignant neoplasm of breast
CPT/HCPCS: 27447; 36415; 51702; 73560; 80048; 80053; 81001; 85025; 97110; 97116; 97161; 97165; A7015; C1776; C9290; G0378; J0131; J0690; J1100; J2405; J2704; J2795; J3010; J3370; J3490; J7030; J7613

== ENCOUNTER → 2022-06-15 14:21 | Outpatient (BNVA) | payer MEDICARE, OTHER, SELFPAY | PROVIDERS: PCP Family Medicine; Visit Provider Nurse Practitioner Family | DX: Z96.651 Presence of right artificial knee joint (principal) | CPT/HCPCS: 73560; 73565; 99024 ==

== ENCOUNTER → 2022-07-20 12:59 | Outpatient (BNVA) | payer MEDICARE, OTHER, SELFPAY | PROVIDERS: PCP Family Medicine; Visit Provider Nurse Practitioner Family | DX: Z96.651 Presence of right artificial knee joint (principal) | CPT/HCPCS: 73560; 73565; 99024; 99213 ==

== ENCOUNTER → 2022-08-05 09:48 | Outpatient (BNVA) | payer MEDICARE, OTHER, SELFPAY | PROVIDERS: PCP Family Medicine; Visit Provider Urology | DX: Z87.440 Personal history of urinary (tract) infections (principal) | CPT/HCPCS: 81003; 99213 ==

== ENCOUNTER → 2022-10-19 12:56 | Outpatient (BNVA) | payer MEDICARE, OTHER, SELFPAY | PROVIDERS: PCP Family Medicine; Visit Provider Nurse Practitioner Family | DX: G89.18 Other acute postprocedural pain (principal); Z96.659 Presence of unspecified artificial knee joint | CPT/HCPCS: 73560; 73565; 99213 ==

== ENCOUNTER → 2022-11-01 07:57 | Outpatient (BNVA) | payer MEDICARE, OTHER, SELFPAY | PROVIDERS: PCP Family Medicine; Visit Provider Urology | DX: N39.0 Urinary tract infection, site not specified (principal) | CPT/HCPCS: 81003; 99213 ==

== ENCOUNTER → 2023-04-04 13:54 | Outpatient (BNVA) | payer MEDICARE, OTHER, SELFPAY | PROVIDERS: PCP Family Medicine; Visit Provider Family Medicine | DX: I10 Essential (primary) hypertension (principal); D64.9 Anemia, unspecified; E78.5 Hyperlipidemia, unspecified | CPT/HCPCS: 80053; 80061; 85025 ==

== ENCOUNTER 2023-04-19 10:42 | Outpatient (CLI) | payer MEDICARE, OTHER, SELFPAY ==
--- NOTE | 2023-04-19 10:47 | MM_ITS ---
WS: [id number] DIAGNOSTIC BILATERAL DIGITAL BREAST TOMOSYNTHESIS MAMMOGRAPHY WITH CAD HISTORY: ANNUAL - HX BR CA COMPARISON: 04/14/2022 and 04/09/2021 TECHNIQUE: Bilateral craniocaudad, mediolateral oblique, and mediolateral views are submitted with to mosmagyd and SM. Computer aided detection utilized. Breast composition: The breasts are heterogeneously dense, which may obscure small masses. Post lumpe ctomy changes and posttreatment changes are noted within the anterior RIGHT breast. There is a lumpec bella site which is stable. At the lumpectomy site there is architectural distortion with dystrophic c alcifications. There is overlying skin thickening and trabecular thickening. Additional benign rodlik e calcifications within each breast. IMPRESSION: MM/[place] [id number] BI-RADS: 2-Benign FOLLOW UP: 1 Year Follow-up
== END 2023-04-19 10:43 | disposition home or self-care (01) ==
LOC: RAD 10:42
PROVIDERS: PCP Family Medicine; Visit Provider Internal Medicine Medical Oncology
DX: Z85.3 Personal history of malignant neoplasm of breast (principal)
CPT/HCPCS: 77062; G0279

== ENCOUNTER → 2023-06-01 13:02 | Outpatient (BNVA) | payer MEDICARE, OTHER, SELFPAY | PROVIDERS: PCP Family Medicine; Visit Provider Nurse Practitioner | DX: Z96.651 Presence of right artificial knee joint; M17.11 Unilateral primary osteoarthritis, right knee; M25.562 Pain in left knee; G89.29 Other chronic pain | CPT/HCPCS: 73560; 73565; 99213 ==

== ENCOUNTER 2023-06-29 06:00 | Outpatient (CLI) | payer MEDICARE, OTHER, SELFPAY | END 2023-06-29 23:59 | disposition home or self-care (01) | LOC: SPT 07-01 08:30 | PROVIDERS: Visit Provider Nurse Practitioner | DX: Z46.89 Encounter for fitting and adjustment of other specified devices (principal); M25.562 Pain in left knee | CPT/HCPCS: 99214; L1812 ==

== ENCOUNTER → 2023-06-29 13:45 | Outpatient (BNVA) | payer MEDICARE, OTHER, SELFPAY | PROVIDERS: PCP Family Medicine; Visit Provider Nurse Practitioner | DX: M17.12 Unilateral primary osteoarthritis, left knee; Z46.89 Encounter for fitting and adjustment of other specified devices; M25.562 Pain in left knee | CPT/HCPCS: 73560; 73565; 99214; L1812 ==

== ENCOUNTER 2023-07-25 13:12 | Oncology outpatient (recurring) (ONCR) | payer MEDICARE, OTHER, SELFPAY ==
[2023-07-25 13:42] LABS: Basophils % 0.9 %; Eosinophils # 0.1 10^3/uL (0.0-0.8); Eosinophils % 2.2 %; Hematocrit 43.5 % (36-47); Lymphocytes # 1.4 10^3/uL (0.8-4.8); Lymphocytes % 31.3 %; Mean Corpuscular HGB Conc 31.7 g/dL (30-55); Mean Corpuscular Hemoglobin 29.6 pg (27-33); Mean Corpuscular Volume 93.3 fl (85-98); Monocytes # 0.3 10^3/uL (0.2-0.9); Monocytes % 7.6 %; Neutrophils # 2.59 10^3/uL (1.8-7.7); Neutrophils % 57.8 %; Nucleated Red Blood Cells % 0 %; Platelet Count 129 10^3/cmm (157-399); Red Blood Count 4.66 10^6/uL (3.85-5.65); Red Cell Distribution Width 13.7 % (12.1-15.1); White Blood Count 4.48 10^3/uL (3.29-11.43)
[2023-07-25 14:11] LABS: Albumin Level 4.1 g/dL (3.5-5.2); Alkaline Phosphatase 95 U/L (35-105); Blood Urea Nitrogen 15 mg/dL (8-23); Calcium 8.6 mg/dL (8.5-10.5); Carbon Dioxide 24 mmol/L (22-29); Chloride 104 mmol/L (98-107); Globulin 2.3 g/dL (1.3-4.6); Glucose 110 mg/dL (65-115); Osmolality Calculated 293 mOsm/kg (285-295); Sodium 141 mmol/L (136-145); Total Bilirubin 0.3 mg/dL (0.15-1.2); Total Protein 6.4 g/dL (6.6-8.7)
[2023-07-25 14:13] LABS: Anion Gap 17.8 (5-19); Aspartate Amino Transferase 23 U/L (0-32); Potassium 4.8 mmol/L (3.5-5.1)
[2023-07-25 14:14] LABS: Alanine Aminotransferase 14 U/L (0-33)
== END 2023-08-21 23:59 | disposition home or self-care (01) ==
PROVIDERS: Internal Medicine Medical Oncology; Visit Provider Nurse Practitioner Family
DX: Z08 Encounter for follow-up examination after completed treatment for malignant neoplasm (principal); Z85.3 Personal history of malignant neoplasm of breast; Z92.21 Personal history of antineoplastic chemotherapy; Z92.3 Personal history of irradiation; Z92.25 Personal history of immunosuppression therapy; F41.9 Anxiety disorder, unspecified
CPT/HCPCS: 36415; 80053; 85025; 99214

== ENCOUNTER → 2024-06-19 14:56 | Outpatient (BNVA) | payer MEDICARE, OTHER, SELFPAY | PROVIDERS: PCP Family Medicine; Visit Provider Family Medicine | DX: I10 Essential (primary) hypertension (principal); D69.6 Thrombocytopenia, unspecified | CPT/HCPCS: 80053; 85025 ==

== ENCOUNTER 2024-09-11 13:37 | Outpatient (CLI) | payer MEDICARE, OTHER, SELFPAY ==
--- NOTE | 2024-09-11 14:00 | MM_ITS ---
WS: [id number] DIAGNOSTIC BILATERAL DIGITAL BREAST TOMOSYNTHESIS MAMMOGRAPHY WITH CAD HISTORY: History of [place] Cancer, RIGHT breast cancer, status post radiation and chemotherapy. COMPARISON: 04/19/2023, 04/14/2022, TECHNIQUE: Bilateral craniocaudad, mediolateral oblique, and mediolateral views are submitted with tomosynthesis and SM. Computer aided detection utilized. Breast composition: The breasts are heterogeneously dense, which may obscure small masses. Postsurgical changes and lumpectomy RIGHT breast. Rodlike calcifications in each breast. New RIGHT breast skin thickening measuring up to 5 mm. Skin thickening has progressed over the prior mammograms. No mass or abnormality in the LEFT breast. MM/MM diag BI tomosynthesis [id number] IMPRESSION: BI-RADS: 4 - Suspicious Finding - Biopsy Should Be Considered FOLLOW UP: See Report New skin thickening involving the RIGHT breast measuring up to 5 mm. This does represent a new change from multiple prior studies. Consider punch biopsy of th e subcutaneous soft tissues to exclude inflammatory breast cancer. Punch biopsy is typically performed by dermatology or surgery. There is no mass within the breast. Breast edema may be secondary to obstructed lymphatics. These changes a re new compared to the prior exams.
== END 2024-09-11 13:38 | disposition home or self-care (01) ==
PROVIDERS: PCP Family Medicine; Visit Provider Family Medicine
DX: Z85.3 Personal history of malignant neoplasm of breast (principal); R92.333 Mammographic heterogeneous density, bilateral breasts; Z98.890 Other specified postprocedural states; R92.1 Mammographic calcification found on diagnostic imaging of breast; R23.4 Changes in skin texture
CPT/HCPCS: 77062; 77063; 77067; G0279

== ENCOUNTER 2024-09-19 13:16 | Oncology outpatient (recurring) (ONCR) | payer MEDICARE, OTHER, SELFPAY ==
[2024-09-19 13:36] LABS: Basophils # 0.1 10^3/uL (0.0-0.1); Basophils % 0.8 %; Eosinophils # 0.1 10^3/uL (0.0-0.8); Eosinophils % 1.2 %; Hematocrit 42.9 % (36-47); Lymphocytes # 1.3 10^3/uL (0.8-4.8); Lymphocytes % 21.8 %; Mean Corpuscular HGB Conc 32.2 g/dL (30-55); Mean Corpuscular Hemoglobin 29.4 pg (27-33); Mean Corpuscular Volume 91.5 fl (85-98); Mean Platelet Volume 9.6 fL (7.4-10.4); Monocytes # 0.4 10^3/uL (0.2-0.9); Monocytes % 6.1 %; Neutrophils # 4.13 10^3/uL (1.8-7.7); Neutrophils % 69.8 %; Nucleated Red Blood Cells % 0 %; Platelet Count 153 10^3/cmm (157-399); Red Blood Count 4.69 10^6/uL (3.85-5.65); Red Cell Distribution Width 13.6 % (12.1-15.1); White Blood Count 5.92 10^3/uL (3.29-11.43)
[2024-09-19 13:51] LABS: Alanine Aminotransferase 13 U/L (0-33); Albumin Level 4.3 g/dL (3.5-5.2); Alkaline Phosphatase 105 U/L (35-105); Anion Gap 14.1 (5-19); Aspartate Amino Transferase 17 U/L (0-32); Blood Urea Nitrogen 14 mg/dL (8-23); Calcium 9.4 mg/dL (8.5-10.5); Carbon Dioxide 29 mmol/L (22-29); Chloride 102 mmol/L (98-107); Globulin 2.6 g/dL (1.3-4.6); Glucose 91 mg/dL (65-115); Osmolality Calculated 292 mOsm/kg (285-295); Potassium 4.1 mmol/L (3.5-5.1); Sodium 141 mmol/L (136-145); Total Bilirubin 0.4 mg/dL (0.15-1.2); Total Protein 6.9 g/dL (6.6-8.7)
== END 2024-09-19 23:59 | disposition home or self-care (01) ==
LOC: ONCMED 13:17
PROVIDERS: PCP Family Medicine; Visit Provider Nurse Practitioner Family
DX: Z08 Encounter for follow-up examination after completed treatment for malignant neoplasm (principal); Z85.3 Personal history of malignant neoplasm of breast; Z92.21 Personal history of antineoplastic chemotherapy; Z92.3 Personal history of irradiation; F41.9 Anxiety disorder, unspecified; F32.9 Major depressive disorder, single episode, unspecified
CPT/HCPCS: 36415; 80053; 85025; 99214

== ENCOUNTER → 2024-10-02 14:42 | Outpatient (BNVA) | payer MEDICARE, OTHER, SELFPAY | PROVIDERS: PCP Family Medicine; Visit Provider Dermatology | DX: D48.5 Neoplasm of uncertain behavior of skin (principal); L82.1 Other seborrheic keratosis; L81.4 Other melanin hyperpigmentation; L72.0 Epidermal cyst | CPT/HCPCS: 11104; 11105; 99204 ==

== ENCOUNTER 2024-10-17 14:57 | Oncology outpatient (recurring) (ONCR) | payer MEDICARE, OTHER, SELFPAY | END 2024-10-20 23:59 | disposition home or self-care (01) | PROVIDERS: PCP Family Medicine; Visit Provider Nurse Practitioner Family | DX: Z08 Encounter for follow-up examination after completed treatment for malignant neoplasm (principal); F41.8 Other specified anxiety disorders; Z85.3 Personal history of malignant neoplasm of breast; Z92.3 Personal history of irradiation; Z92.21 Personal history of antineoplastic chemotherapy; Z92.23 Personal history of estrogen therapy; R60.0 Localized edema | CPT/HCPCS: 99213 ==

== ENCOUNTER → 2024-11-28 11:06 | Outpatient (BNVA) | payer MEDICARE, OTHER, SELFPAY | PROVIDERS: PCP Family Medicine; Visit Provider Specialist | DX: M25.551 Pain in right hip (principal); M16.11 Unilateral primary osteoarthritis, right hip | CPT/HCPCS: 73502; 99214 ==

== ENCOUNTER 2024-11-30 08:49 | Oncology outpatient (recurring) (ONCR) | payer MEDICARE, OTHER, SELFPAY ==
--- NOTE | 2024-11-30 09:00 | CTR_ITS ---
PROCEDURE INFORMATION: Exam: CT Right Lower Extremity Without Contrast, Hip Exam date and time: 11/30/2024 9:15 AM Age: 89 years old Clinical indication: Pain; Hip; Right; History of breast surgery TECHNIQUE: Imaging protocol: CT of the right lower extremity without contrast was performed. Exam focused on the hip. Radiation optimization: All CT scans at this facility use at least one of these dose optimization techniques: automated exposure control; mA and/or kV adjustment per patient size (includes targeted exams where dose is matched to clinical indication); or iterative reconstruction. COMPARISON: CR XR hip RT 2-3V wo/w pel* [id number] 11/28/2024 11:14 AM RADIATION DOSE METRICS: Total DLP (mGy-cm): 287.11 FINDINGS: Bones/joints: The bones appear demineralized. Severe right hip joint space narrowing is noted with severe thinning of the medial right acetabulum and mild acetabular protrusio. Acetabular over coverage of the femoral head is noted. No acute fracture. Mild to moderate femoral head and acetabular osteophyte formation is identified, and [id number] degenerative appearing subcortical cystic changes in the femoral head and acetabulum are identified. Mild osteophyte formation at the symphysis pubis is present. Soft tissues: Normal. Vasculature: Atherosclerotic changes are noted in the visualized pelvis and right lower extremity. CT/CT hip RT wo con* [id number] IMPRESSION: 1. No acute right hip findings. 2. Severe right hip primary osteoarthritic changes are present with thinning of the medial acetabulum and mild acetabular protrusio. There is also acetabular over coverage of the femoral head, which can be associated with pincer type femoroacetabular impingement.
== END 2024-12-20 23:59 | disposition home or self-care (01) ==
LOC: ONCMED 08:50
PROVIDERS: PCP Family Medicine; Visit Provider Nurse Practitioner Family
DX: Z08 Encounter for follow-up examination after completed treatment for malignant neoplasm (principal); Z85.3 Personal history of malignant neoplasm of breast; Z92.21 Personal history of antineoplastic chemotherapy; Z92.3 Personal history of irradiation; Z92.25 Personal history of immunosuppression therapy; F41.9 Anxiety disorder, unspecified; M16.11 Unilateral primary osteoarthritis, right hip
CPT/HCPCS: 73700

== ENCOUNTER → 2024-12-05 14:06 | Outpatient (BNVA) | payer MEDICARE, OTHER, SELFPAY | PROVIDERS: PCP Family Medicine; Visit Provider Specialist | DX: M16.11 Unilateral primary osteoarthritis, right hip (principal) | CPT/HCPCS: 99214 ==

== ENCOUNTER → 2025-01-02 13:57 | Outpatient (BNVA) | payer MEDICARE, OTHER, SELFPAY | PROVIDERS: PCP Family Medicine; Visit Provider Specialist | DX: M16.11 Unilateral primary osteoarthritis, right hip (principal); Z01.818 Encounter for other preprocedural examination; M24.7 Protrusio acetabuli | CPT/HCPCS: 36415; 73502; 80053; 85025; 99215 ==

== ENCOUNTER 2025-01-03 14:56 | Outpatient (CLI) | payer MEDICARE, OTHER, SELFPAY ==
[2025-01-03 15:38] LABS: Glucose Urine UA Negative (Normal); Nitrate Urine Negative (Negative); Specific Gravity, Urine 1.012 (1.005-1.030)
[2025-01-03 16:17] LABS: UA Slide Review UA Slide Review Perf
[2025-01-03 16:18] LABS: Add Urine Microscopic? YES
== END 2025-01-03 14:57 | disposition home or self-care (01) ==
PROVIDERS: PCP Family Medicine; Visit Provider Specialist
DX: Z01.818 Encounter for other preprocedural examination (principal)
CPT/HCPCS: 81001; 87077; 87086; 87186

== ENCOUNTER 2025-01-14 09:50 | Outpatient (CLI) | payer MEDICARE, OTHER, SELFPAY ==
--- NOTE | 2025-01-14 10:00 | CT_ITS ---
WS: [id number] CT RIGHT hip for ELENO procedure HISTORY: PER [facility] PROTOCOL Date: 01/14/2025 9:56 AM TECHNIQUE: Protocol for [facility] total hip replacement has been obtained. This includes axial imaging from the hip joint through the knee joint. DLP: 880 FINDINGS: Osteopenia. Degenerative arthritis lower lumbar spine. Degenerative arthritis sacroiliac joints. Prior LEFT GURPREET. Markedly advanced arthritis RIGHT hip with subchondral cystic change and sclerosis. Subchondral cystic change femoral head and acetabulum. Complete loss of the joint space with [id number] articulation. Tiny fat-containing umbilical hernia. Sigmoid diverticulosis. RIGHT TKA. Vascular calcification CT/CT hip RT [facility] [id number] IMPRESSION: CT imaging provided for [facility] robotic total HIP replacement.
== END 2025-01-14 09:51 | disposition home or self-care (01) ==
LOC: RAD 09:50
PROVIDERS: PCP Family Medicine; Visit Provider Specialist
DX: M16.11 Unilateral primary osteoarthritis, right hip (principal); Z96.642 Presence of left artificial hip joint
CPT/HCPCS: 73700

== ENCOUNTER 2025-01-18 10:47 | Outpatient (CLI) | payer MEDICARE, OTHER, SELFPAY ==
[2025-01-18 12:22] LABS: Glucose Urine UA Negative (Normal); Nitrate Urine Negative (Negative); Specific Gravity, Urine 1.021 (1.005-1.030)
[2025-01-18 12:30] LABS: Add Urine Microscopic? YES
== END 2025-01-18 10:48 | disposition home or self-care (01) ==
LOC: LAB 10:50
PROVIDERS: PCP Family Medicine; Visit Provider Specialist
DX: Z01.818 Encounter for other preprocedural examination (principal)
CPT/HCPCS: 81001; 87086

== ENCOUNTER → 2025-01-25 11:11 | Outpatient (BNVA) | payer MEDICARE, OTHER, SELFPAY | PROVIDERS: PCP Family Medicine; Visit Provider Family Medicine | DX: Z01.818 Encounter for other preprocedural examination (principal) | CPT/HCPCS: 93005 ==

== ENCOUNTER 2025-02-07 13:31 | Observation (INO) | payer MEDICARE, OTHER, SELFPAY ==
[2025-02-07] VITALS (21 sets, daily range): BP systolic 104–172; BP diastolic 56–99; PULSE 55–70; RESP 15–20; TEMP 36.1–36.9; O2SAT 92–100; BMI 25.0
[2025-02-07] MEDS: acetaminophen 1,000 MG/100 ML PIGGYBACK 400 MG IV ×2 (09:45→16:43)
--- NOTE | 2025-02-07 10:22 | ANES.PREANE2 ---
Pre-Anesthetic Assessment Height/Weight: Height 1.57 m Weight 62.142 kg Temp Pulse Resp BP Pulse Ox O2 Del Method 97.9 F 70 18 172/99 97 Room Air 02/07/25 09:31 02/07/25 09:31 02/07/25 09:31 02/07/25 09:31 02/07/25 09:31 02/07/25 09:31 Operation Date: 02/07/25 11:30 Proposed Procedures p Germán Robot Total Hip Arthroplasty(Right) - Dina Ferguson MD Familial anesthetic complications: None Was Beta Anisha taken within 24 hours: N/A Was Clonidine taken within 24 hours: N/A Last intake: Intake Last Liquid Date 02/06/25 Last Liquid Time 21:00 Last Solid Date 02/06/25 Last Solid Time 00:00 Social No alcohol and No tobacco Exam alert, oriented x 3, clear to auscultation bilaterally and regular rate & rhythm Airway Mallampati: Class II Dentition: full Pulmonary Asthma CV/HEM Hypertension Metabolic Hyperlipidemia Anesthetic Plan ASA status: 2 Anesthesia: Regional (specify below) Other: spinal Risk of > 500 ml blood loss (7ml/kg in children): No Medications/Allergies Home Medications ?Medication ?Instructions ?Recorded ?Confirmed ?Last Taken ?Type cranberry fruit 400 mg capsule 400 mg PO DAILY 03/04/21 02/06/25 02/06/25 History potassium chloride 10 mEq 10 meq PO DAILY 03/04/21 02/06/25 02/06/25 History capsule,extended release magnesium oxide 400 mg (241.3 mg 400 mg PO DAILY #90 tabs 06/22/23 02/06/25 02/06/25 Rx magnesium) tablet Hinged knee brace, LEFT #1 ea 06/29/23 01/02/25 Unknown Rx albuterol sulfate 90 mcg/actuation 2 inh inhalation PRN PRN Wheezing 02/06/25 02/06/25 02/06/25 History aerosol inhaler lisinopril 5 mg tablet 5 mg PO DAILY 02/06/25 02/06/25 02/06/25 History pregabalin 75 mg capsule 75 mg PO DAILY PRN Pain 02/06/25 02/06/25 Unknown History trazodone 100 mg tablet 100 mg PO BEDTIME 02/06/25 02/07/25 02/06/25 History Allergies Allergy/AdvReac Type Severity Reaction Status Date / Time No Known Allergies Allergy Verified 02/06/25 17:48 Current Medications Generic Name Dose Route Start Last Admin Trade Name Kavya PRN Reason Stop Dose Admin Sodium Chloride 1,000 mls @ 30 mls/hr 02/07/25 09:15 02/07/25 09:44 Sodium Chloride 0.9% IV 02/08/25 09:14 30 mls/hr .Q24H VARGHESE Administration PFSH Anesthesia Medical History Primary osteoarthritis of left knee Chronic pain of left knee Primary osteoarthritis of right knee Insomnia Osteoarthritis Breast cancer Asthma Hyperlipidemia Anxiety HTN (hypertension) Recurrent UTI Surgical History History of nasal polypectomy History of cholecystectomy History of hysterectomy History of tonsillectomy and adenoidectomy History of total right knee replacement History of removal of Port-a-Cath H/O partial mastectomy (11/16/12) Right breast lumpectomy with axillary sentinel lymph node biopsy History of left hip replacement Family History Mother , 98 Dementia Father , 85 No problems noted. 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
--- NOTE | 2025-02-07 10:24 | W.PM.OPSFHP ---
Same Day Surgery H&P Indication for Procedure/HPI DATE OF PROCEDURE: February 07, 2025 CHIEF COMPLAINT/INDICATIONFOR SURGICAL PROCEDURE: Right primary osteoarthritis of the hip with protrusio PREOP DIAGNOSIS: Right primary osteoarthritis of the hip with protrusio PLANNED PROCEDURE: Operation Date: 02/07/25 11:30 Proposed Procedures p Germán Robot Total Hip Arthroplasty(Right) - Dina Ferguson MD Medications/Allergies* Home Medications ?Medication ?Instructions ?Recorded ?Confirmed ?Type cranberry fruit 400 mg capsule 400 mg PO DAILY 03/04/21 02/06/25 History potassium chloride 10 mEq 10 meq PO DAILY 03/04/21 02/06/25 History capsule,extended release albuterol sulfate 90 mcg/actuation 2 inh inhalation PRN PRN Wheezing 02/06/25 02/06/25 History aerosol inhaler lisinopril 5 mg tablet 5 mg PO DAILY 02/06/25 02/06/25 History pregabalin 75 mg capsule 75 mg PO DAILY PRN Pain 02/06/25 02/06/25 History trazodone 100 mg tablet 100 mg PO BEDTIME 02/06/25 02/07/25 History Allergies/Adverse Reactions Allergy/AdvReac Type Severity Reaction Status Date / Time No Known Allergies Allergy Verified 02/06/25 17:48 Current Medications: Generic Name Dose Route Start Last Admin Trade Name Freq PRN Reason Stop Dose Admin Sodium Chloride 1,000 mls @ 30 mls/hr 02/07/25 09:15 02/07/25 09:44 Sodium Chloride 0.9% IV 02/08/25 09:14 30 mls/hr .Q24H VARGHESE Administration Pertinent History/Comorbid Conditions* Medical History (Updated 01/04/25 @ 15:56 by Dina Ferguson MD) Primary osteoarthritis of left knee Chronic pain of left knee Primary osteoarthritis of right knee Insomnia Osteoarthritis Breast cancer Asthma Hyperlipidemia Anxiety HTN (hypertension) Recurrent UTI Surgical History (Updated 06/03/23 @ 15:12 by MOLLY Gore) History of nasal polypectomy History of cholecystectomy History of hysterectomy History of tonsillectomy and adenoidectomy History of total right knee replacement History of removal of Port-a-Cath H/O partial mastectomy (11/16/12) Right breast lumpectomy with axillary sentinel lymph node biopsy History of left hip replacement Family History (Updated 10/04/22 @ 13:15 by Elizabeth Romero MD) Father, 85 Mother, 98 Dementia Mother Denies family history of Diabetes CAD (coronary artery disease) Cancer Stroke Social History Smoking and tobacco/nicotine status: never used tobacco/nicotine Alcohol intake: current Alcohol intake frequency: holidays/special occasions only Substance/Drug Use: never Household members: spouse Marital status: Number of children: 1 Current occupational status: retired 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 Romero as well as my previous office note Recommendations Surgery/Procedure today Coding Level of Care Code Acute Code for Gerardog Aydee
[2025-02-07] MEDS: ceFAZolin 2,000 mg SDV 2000 MG IVP ×2 (11:20→18:01)
[2025-02-07] MEDS: tranexamic acid 1,000 mg/10mL SDV 1000 MG IV (12:11)
[2025-02-07] MEDS: BUPivacaine liposome 13.3 mg/mL SDV 20 mL 266 MG INFILTRATI (12:34)
[2025-02-07] MEDS: BUPivacaine 0.5% INJ 10 mL 20 ML INJECTION (12:34)
[2025-02-07] MEDS: ceFAZolin 1,000 mg SDV 1000 MG IRRIGATION (12:39)
--- NOTE | 2025-02-07 14:02 | XR_ITS ---
WS: [id number] XR pelvis 1-2V* [id number] REASON FOR EXAM: S/P GURPREET FINDINGS: Total right hip arthroplasty. Components of the arthroplasty are intact and in proper position and alignment. No focal bone abnormality. XR/XR pelvis 1-2V* [id number] IMPRESSION: Total right hip arthroplasty without abnormality.
--- NOTE | 2025-02-07 14:10 | P.OP_ITS ---
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 neck angle, a Trident II Tritanium solid back acetabular shell size 52 mm by E alpha code, an MDM cementless liner size 42 mm inner diameter by E alpha code, a Hinduism X3 MDM insert with a 28 mm inner diameter by 42E, and a Biolox ceramic V40 28 mm by -4 mm femoral head. Specimens removed/disposition: Bone, disposed of Pathology: None. Surgeon: Dina Ferguson MD Hand Funnel Coater: Jessica Medina, nurse practitioner, who services were required for positioning, retraction, exposure during the surgical procedure, manipulation of the hip, and closure. Anesthesia: General (Intubated, ASA 2 following failed attempt at spinal anesthesia) Estimated blood loss (mL): 210 IV fluids (mL): 1,100 Urine output (mL): 250 Complications: None Findings: The hip was stable at 90 degrees of flexion with 70 degrees of internal rotation and 30 degrees of adduction. It was also stable to toe hanging and to external rotation. There was severe degenerative osteoarthritis of the hip with thinning of the medial wall, but intact medial wall. Condition: stable Disposition: PACU (Then to floor for postoperative rehabilitation and pain noam parikh) Brief History: This 89-year-old woman presented to the clinic to discuss right total hip arthroplasty. 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 This procedure was well-tolerated and the patient has done well. Now she is having incapacitating pain in the right hip with significant shortening. Imaging studies again demonstrated protrusio of the hip, but to a lesser degree than on the opposite hip. After discussion in the office, the patient wished to proceed with operative intervention in the form of total hip arthroplasty. Risks and complications were discussed with her. Consents were signed in the office and questions were answered. On the morning of surgery, she was given further opportunity to have questions answered. Procedure: Patient was brought to the operating theater. She was transferred to the operating room table and a failed attempt was made to place a spinal anesthetic. Therefore, the patient was administered a general anesthetic, intubated, ASA 2. Following administration of adequate anesthesia, the patient was placed in full lateral position and held in position with a pegboard. The patient's right lower extremity was then prepped and draped in usual fashion utilizing DuraPrep. It was draped free. Following prepping and draping, a surgical pause was performed. At the time of surgical pause, we identified the site and side of surgery. We also identified the patient and preoperative surgical markings. Confirmation was made of equipment availability. Additionally, the patient's preoperative IV antibiotic, Ancef 2 g, was confirmed as being given in a timely fashion and being the appropriate antibiotic. Following the surgical pause, an incision was made centering over the patient's greater trochanter continuing proximally and distally as necessary to allow access to the hip joint. Dissection continued through skin and soft tissues using a scalpel, and hemostasis was obtained using electrocautery. The tensor fascia carol was identified and incised longitudinally. Sciatic nerve was identified and protected throughout the surgical procedure. A Charnley U retractor was placed after the tensor fascia carol had been incised longitudinally, and the sciatic nerve had been identified. The hip was internally rotated, and the piriformis muscle was identified and tagged. Piriformis muscle along with the remaining short external rotators were then incised from the posterior aspect of the hip joint. These were retracted posteriorly. The capsule was entered in a T-type fashion with the edges being tagged. The hip was dislocated. Following hip dislocation, a femoral neck osteotomy was accomplished in the appropriate position. We then evaluated the acetabulum. The femur was retracted anteriorly. Soft tissues were retracted and the labrum was removed along with remaining osteophytes. The acetabulum was noted to be deep which was consistent with the patient's history of protrusio. Palpation, over the medial aspect of the acetabulum, demonstrated that there was no insuff iciency, however. We then began reaming with care being taken not to deepen the acetabulum. Once the femoral head was removed, there was noted to be significant loss of cartilage over the head and over the acetabulum. We reamed to a size 51 mm to allow for a size 52 mm solid back Trident II acetabular shell. The acetabulum was impacted into position. It was noted that the acetabulum matched the bony anatomy. The cup was noted to seat nicely and had good fixation upon impact. The MDM metal liner, size 42E to match the acetabulum, was placed into position and impacted. We confirmed that the acetabular insert was completely seated prior to addressing the femur. Attention was directed to the proximal femur. The proximal femur was lifted out of the wound. A canal finder was passed after the box chisel. The reamer was then used to lateralize. We then began broaching. We broached sequentially and had excellent fit and fill with the size 5 Accolade II 127? neck angle hip stem. A trial reduction was accomplished with a 28 mm by -4 mm femoral head with the appropriate MDM insert. With this in place, we had the above noted stabilities, and at that time, we felt that we had restored leg lengths. We also had excellent stability noted above. Therefore, trial components were removed after the hip was dislocated. The size 5 Accolade II 127? neck angle hip stem was impacted into position without difficulty and onto this was placed a 28 mm by -4 mm ceramic femoral head which had been assembled into the 42E Hinduism MDM insert. With this construct, we had the above-noted stability. The stem was noted to seat nicely prior to placement of the femoral head. The wound was copiously irrigated with 20 mL of Betadine and 500 mL of normal saline mixed together. Subsequently, we suctioned this out and irrigated the wound copiously with lactated Ringer's. At this time, with all components in appropriate position, the hip was reduced. Following reduction of the prosthesis once again, we confirmed the stability of the hip. Leg lengths were also felt to be satisfactory. Being satisfied with the prosthesis, attention was directed to closure. Closure of the capsule was not possible secondary to the change in the patient's anatomy. Piriformis was reattached with 0 Vicryl. Tensor fascia carol was closed with 0 Vicryl in an interrupted fashion. The subcutaneous tissues were closed with 2-0 STRATAFIX. Vancomycin powder and a Gelfoam thrombin mixture was placed into the wound as well. The skin was closed with a running 4 oh STRATAFIX followed by Dermabond pernio and OpSite. There was no dislocation, fracture, or movement of the cup. The patient was placed in an abduction pillow. She was returned the Recovery Room in a satisfactory condition and will be discharged to the floor for postoperative rehabilitation and pain management. There were no complications. Related Problem List Diagnoses 1. Primary osteoarthritis of right hip: 2. Intrapelvic protrusion of right acetabulum:
[2025-02-07] MEDS: fentaNYL 50 mcg/mL INJ 2mL IVP ×2 (14:15→14:25)
--- NOTE | 2025-02-07 14:40 | ANE.PACU2 ---
Inpatient post-anesthesia follow up: Airway intact: Yes Vital signs: Temperature 98.6 F Pulse Rate 62 Respiratory Rate 17 Blood Pressure 115/64 Pulse Oximetry 94 Oxygen Delivery Me thod Room Air Oxygen Flow Rate 7 Fraction of Inspir ed Oxygen Hydration adequate: Yes Nausea and vomiting: No Pain level: 1 Mental status: Baseline
[2025-02-07] MEDS: tranexamic acid 1,000 MG/100 ML PREMIX 600 MG IV (16:39)
[2025-02-07] MEDS: chlorhexidine gluconate 0.12% Btl 473 mL 30 ML MUCOUS MEM ×2 (16:39→20:25)
[2025-02-07] MEDS: oxyCODONE 5 mg IR Tab/Cap PO (16:43)
[2025-02-07] MEDS: mupirocin oint 22 gm 1 APPLIC NASAL (16:43)
[2025-02-07] MEDS: sennosides-docusate Tablet 2 TAB PO (16:43)
[2025-02-08] VITALS (9 sets, daily range): BP systolic 92–115; BP diastolic 53–64; PULSE 56–66; RESP 13–17; TEMP 36.3–37; O2SAT 91–96
[2025-02-08] MEDS: ceFAZolin 2,000 mg SDV 2000 MG IVP ×2 (04:03→11:18)
[2025-02-08] MEDS: acetaminophen 1,000 MG/100 ML PIGGYBACK 400 MG IV ×2 (04:04→11:18)
[2025-02-08 04:46] LABS: Hematocrit 35.7 % (36-47); Hemoglobin 11.30 g/dL (11.27-16.99); Mean Corpuscular HGB Conc 31.7 g/dL (30-55); Mean Corpuscular Hemoglobin 28.8 pg (27-33); Mean Corpuscular Volume 90.8 fl (85-98); Nucleated Red Blood Cells % 0 %; Platelet Count 148 10^3/cmm (157-399); Red Blood Count 3.93 10^6/uL (3.85-5.65); White Blood Count 11.23 10^3/uL (3.29-11.43)
[2025-02-08 05:08] LABS: Anion Gap 15.1 (5-19); Blood Urea Nitrogen 19 mg/dL (8-23); Calcium 8.6 mg/dL (8.5-10.5); Carbon Dioxide 27 mmol/L (22-29); Chloride 100 mmol/L (98-107); Creatinine Clr Calc Pharmacy 42.9514; Glucose 103 mg/dL (65-115); Osmolality Calculated 289 mOsm/kg (285-295); Potassium 4.1 mmol/L (3.5-5.1); Sodium 138 mmol/L (136-145)
[2025-02-08] MEDS: chlorhexidine gluconate 0.12% Btl 473 mL 30 ML MUCOUS MEM ×4 (08:52→21:22)
[2025-02-08] MEDS: multivitamin therapeutic Tablet 1 TAB PO (08:52)
[2025-02-08] MEDS: mupirocin oint 22 gm 1 APPLIC NASAL ×2 (08:53→17:43)
--- NOTE | 2025-02-08 13:39 | PM.PN ---
Subjective Subjective: Patient is seen in her room. She states she has more pain today than she did yesterday. She is tired and has not been able to participate aggressively in physical therapy today. Plans are that she will likely go home tomorrow, but she still may require senior living. Medications: Reviewed: Yes Vitals/I&O/Wt Last Vital Signs Temp 97.4 F L 02/08/25 11:31 Pulse 56 L 02/08/25 11:31 Resp 16 02/08/25 11:31 BP 106/53 02/08/25 11:31 Pulse Ox 95 02/08/25 11:31 O2 Del Method Room Air 02/08/25 11:31 O2 Flow Rate 7 02/07/25 14:02 02/07/25 02/08/25 02/08/25 22:59 06:59 14:59 Intake Total 200.000 / 1500.000 580 / 2080.000 320 / 320 Output Total 750 / 1460 250 / 1710 Balance -550.000 / 40.000 330 / 370.000 320 / 320 Weight last 48 hrs Weight 137 lb Weight 137 lb Weight 137 lb Physical Exam Const: COMMON NORMALS: no acute distress, average body habitus, patient oriented x3 and alert GENERAL APPEARANCE: cooperative and comfortable ORIENTATION/CONSCIOUSNESS: Yes awake HENMT: COMMON NORMALS: normocephalic and atraumatic HEAD & SCALP: normocephalic and atraumatic Eye: GENERAL EYE: appearance normal, both eyes and all related structures Chest: COMMONS NORMALS: normal inspection of the chest Resp: COMMON NORMALS: normal respiratory effort EFFORT & INSPECTION: Yes able to speak in complete sentences and Yes symmetric chest movement Extremity: RIGHT LOWER EXTREMITY: Yes hip joint (Dressing is dry and intact.) Right hip: Yes inspection (There is no significant ecchymosis.), Yes palpation (Thigh is soft and nontender to palpation.), Yes ROM (Not evaluated.) and Yes neurovascular exam (Intact distally with no evidence of DVT) Neuro: COMMON NORMALS: patient oriented x3 SENSORIUM/ORIENTATION: Yes alert Psych: COMMON NORMALS: mental status grossly normal APPEARANCE: Yes grossly normal ATTITUDE: Yes calm and Yes engaged ATTENTION/CONCENTRATION: Yes attention grossly intact Skin: COMMON NORMALS: no rashes or lesions noted GENERAL SKIN EXAM: no rashes or lesions noted Urinary Catheter Management: Ramírez: Cath Placed During This Visit: yes, but has since been removed by the nurse Reason for Continuing Indwelling Catheter: Required Immobilization for Trauma or Surgery or Anesthesia Urinary Catheter Date of Insertion: 02/07/25 Urinary Catheter Time of Insertion: 11:45 Date Urinary Catheter Removed: 02/08/25 Time Urinary Catheter Discontinued: 06:52 Data 02/08/25 04:07 02/08/25 04:07 A&P Assessment and plan 1. Primary osteoarthritis of right hip: Patient is status post left total hip arthroplasty without cement. She tolerated the procedure well. X-rays are excellent. She is weightbearing as tolerated. She is working with physical therapy, but she is having some issue with strength and ability to proceed with her therapy aggressively. She may require senior living, but at the moment, we will reevaluate this tomorrow to see whether or not she can be discharged to home. 2. Intrapelvic protrusion of right acetabulum: 3. History of total left hip arthroplasty: PDMP PDMP Reviewed: Not Reviewed Attestations Medical Necessity Statement*: Ongoing therapy and strengthening. Coding Level of Care Code Acute Code for [facility] Fwd Diagnoses Primary osteoarthritis of right hip M16.11 Intrapelvic protrusion of right acetabulum M24.7 History of total left hip arthroplasty Z96.642
[2025-02-08] MEDS: oxyCODONE 5 mg IR Tab/Cap PO ×2 (14:39→19:36)
[2025-02-09] VITALS (8 sets, daily range): BP systolic 96–122; BP diastolic 54–69; PULSE 61–66; RESP 15–18; TEMP 36.4–37; O2SAT 91–95
[2025-02-09] MEDS: oxyCODONE 5 mg IR Tab/Cap PO ×2 (00:03→09:08)
[2025-02-09] MEDS: chlorhexidine gluconate 0.12% Btl 473 mL 30 ML MUCOUS MEM ×2 (09:03→14:24)
[2025-02-09] MEDS: multivitamin therapeutic Tablet 1 TAB PO (09:03)
[2025-02-09] MEDS: mupirocin oint 22 gm 1 APPLIC NASAL (09:03)
[2025-02-09 09:37] LABS: Hematocrit 35.1 % (36-47); Hemoglobin 11.30 g/dL (11.27-16.99)
--- NOTE | 2025-02-09 16:45 | P.DS_ITS ---
Discharge Providers Date of Admission: 02/07/25 13:31 Date of Discharge: February 09, 2025 Attending Provider at Admission: Dina Ferguson MD Attending Provider at Discharge: Dina Ferguson MD Primary Care Provider: Elizabeth Romero MD Diagnoses at Discharge Discharge Diagnosis 1. Primary osteoarthritis of right hip: 2. Intrapelvic protrusion of right acetabulum: 3. History of total left hip arthroplasty: Reason for Visit Reason for Visit: M16.11 Brief History: This 89-year-old woman presented to the clinic to discuss right total hip arthroplasty. 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 This procedure was well-tolerated and the patient has done well. Now she is having incapacitating pain in the right hip with significant shortening. Imaging studies again demonstrated protrusio of the hip, but to a lesser degree than on the opposite hip. After discussion in the office, the patient wished to proceed with operative intervention in the form of total hip arthroplasty. Risks and complications were discussed with her. Consents were signed in the office and questions were answered. On the morning of surgery, she was given further opportunity to have questions answered. Hospital Course Hospital Course Patient was admitted under observation status following same-day surgery for right total hip arthroplasty secondary to severe degenerative osteoarthritis and protrusio. The patient tolerated the procedure well. She was admitted overnight, but on the first postoperative day, she did have some weakness which precluded her from aggressively participating with therapy. For this reason, the patient was maintained in the hospital for an additional night. She had 2 sessions of physical therapy on the second postoperative day and did well with those. She remained neurologically intact. There was no evidence of DVT. Patient was scheduled for discharge to home with home health. Physical Exam Const: COMMON NORMALS: no acute distress, average body habitus, patient oriented x3 and alert GENERAL APPEARANCE: cooperative and comfortable ORIENTATION/CONSCIOUSNESS: Yes awake HENMT: COMMON NORMALS: normocephalic and atraumatic HEAD & SCALP: normocephalic and atraumatic Eye: GENERAL EYE: appearance normal, both eyes and all related structures Chest: COMMONS NORMALS: normal inspection of the chest Resp: COMMON NORMALS: normal respiratory effort EFFORT & INSPECTION: Yes able to speak in complete sentences and Yes symmetric chest movement Extremity: RIGHT LOWER EXTREMITY: Yes hip joint (Dressing is dry and intact.) Right hip: Yes inspection (No significant swelling), Yes ROM (Not evaluated secondary to fracture) and Yes neurovascular exam (Intact distally with no evidence of DVT) Neuro: COMMON NORMALS: patient oriented x3 SENSORIUM/ORIENTATION: Yes alert Psych: COMMON NORMALS: mental status grossly normal APPEARANCE: Yes grossly normal ATTITUDE: Yes calm and Yes engaged ATTENTION/CONCENTRATION: Yes attention grossly intact Skin: COMMON NORMALS: no rashes or lesions noted GENERAL SKIN EXAM: no rashes or lesions noted Urinary Catheter Management: Ramírez: Cath Placed During This Visit: yes, but has since been removed by the nurse Reason for Continuing Indwelling Catheter: Required Immobilization for Trauma or Surgery or Anesthesia Urinary Catheter Date of Insertion: 02/07/25 Urinary Catheter Time of Insertion: 11:45 Date Urinary Catheter Removed: 02/08/25 Time Urinary Catheter Discontinued: 06:52 Discharge Data Studies Completed and Pending Completed Studies During Hospitalization Category Date Time Status XR pelvis 1-2V* [id number] Routine Exams 02/07/25 14:02 Completed Radiology Impressions Pelvis X-Ray 02/07/25 14:02 IMPRESSION: Total right hip arthroplasty without abnormality. Laboratory Results WBC 11.23 10^3/uL (3.29-11.43) 02/08/25 04:07 RBC 3.93 10^6/uL (3.85-5.65) 02/08/25 04:07 Hgb 11.30 g/dL (11.27-16.99) 02/09/25 09:23 Hct 35.1 % (36-47) L 02/09/25 09:23 MCV 90.8 fl (85-98) 02/08/25 04:07 MCH 28.8 pg (27-33) 02/08/25 04:07 MCHC 31.7 g/dL (30-55) 02/08/25 04:07 RDW 14.1 % (12.1-15.1) 02/08/25 04:07 Plt Count 148 10^3/cmm (157-399) L 02/08/25 04:07 MPV 10.2 fL (7.4-10.4) 02/08/25 04:07 Neut % (Auto) 80.6 % 02/08/25 04:07 Lymph % (Auto) 9.3 % 02/08/25 04:07 [place] % (Auto) 9.5 % 02/08/25 04:07 Eos % (Auto) 0.0 % 02/08/25 04:07 Baso % (Auto) 0.2 % 02/08/25 04:07 Neut # (Auto) 9.05 10^3/uL (1.8-7.7) H 02/08/25 04:07 Lymph # (Auto) 1.0 10^3/uL (0.8-4.8) 02/08/25 04:07 [place] # (Auto) 1.1 10^3/uL (0.2-0.9) H 02/08/25 04:07 Eos # (Auto) 0.0 10^3/uL (0.0-0.8) 02/08/25 04:07 Baso # (Auto) 0.0 10^3/uL (0.0-0.1) 02/08/25 04:07 Nucleated RBC % (auto) 0 % 02/08/25 04:07 Nucleated RBCs # 0.0 /100WBC 02/08/25 04:07 Sodium 138 mmol/L (136-145) 02/08/25 04:07 Potassium 4.1 mmol/L (3.5-5.1) 02/08/25 04:07 Chloride 100 mmol/L (98-107) 02/08/25 04:07 Carbon Dioxide 27 mmol/L (22-29) 02/08/25 04:07 Anion Gap 15.1 (5-19) 02/08/25 04:07 BUN 19 mg/dL (8-23) 02/08/25 04:07 Creatinine 0.6 mg/dL (0.5-0.9) 02/08/25 04:07 GFR Calculation Not Reportable 02/08/25 04:07 Glucose 103 mg/dL (65-115) 02/08/25 04:07 Calculated Osmolality 289 mOsm/kg (285-295) 02/08/25 04:07 Calcium 8.6 mg/dL (8.5-10.5) 02/08/25 04:07 Vitals Last Vital Signs Temp 98.0 F 02/09/25 11:03 Pulse 66 02/09/25 11:03 Resp 15 02/09/25 11:03 BP 122/69 02/09/25 11:03 Pulse Ox 94 02/09/25 11:03 O2 Del Method Room Air 02/09/25 11:03 O2 Flow Rate 1 02/09/25 05:43 Discharge Plan Discharge Patient Disposition: Home Health Service Condition: Stable Prescriptions: New oxycodone 5 mg Tablet 5 mg PO Q4H PRN (Reason: Moderate To Severe Pain) 7 Days Qty: 40 0RF acetaminophen 500 mg Tablet 1,000 mg PO Q8H 15 Days Qty: 0 0RF aspirin 325 mg Tablet,Delayed Release (Dr/Ec) 325 mg PO DAILY 30 Days Qty: 0 0RF celecoxib 200 mg Capsule 200 mg PO 1XD 30 Days Qty: 30 0RF Continued potassium chloride 10 mEq capsule, extended release 10 meq PO DAILY cranberry fruit 400 mg capsule 400 mg PO DAILY Rx Instructions: administer with a meal (DME) Hinged knee brace, LEFT See Rx Instructions .Route .MEDSUPPLY Qty: 1 0RF Rx Instructions: As directed magnesium oxide 400 mg (241.3 mg magnesium) tablet 400 mg PO DAILY Qty: 90 0RF trazodone 100 mg tablet 100 mg PO BEDTIME Rx Instructions: TAKE 1 TABLET BY MOUTH EVERY DAY AT BEDTIME lisinopril 5 mg tablet 5 mg PO DAILY Rx Instructions: Take 1 tablet by mouth once daily albuterol sulfate 90 mcg/actuation HFA aerosol inhaler 2 inh inhalation PRN PRN (Reason: Wheezing) Rx Instructions: INHALE 1 TO 2 PUFFS BY MOUTH EVERY 4 HOURS NEEDED pregabalin 75 mg capsule 75 mg PO DAILY PRN (Reason: Pain) Discharge Order = DC NOW: Discharge Order (Routine); Ordered 02/09/25 Ordered By: Dina Ferguson Referrals: [facility] [Outside] Dina Ferguson MD [Physician, Orthopedics] - 02/20/25 9:15 am Discharge Diet: Advance as tolerated and Usual diet Discharge Activity: Limit activity as instructed, Use walker/crutches as instructed and As per PT/OT instructions Patient Instructions: Acute Wound Care (DC), Opioid Safety, Post Anesthesia Care, Patient Portal & Leo Instructions Activity Restrictions/Additional Instructions: Ice to right hip. Posterior hip precautions. Weightbearing as tolerated. Maintain the dressing until it comes off on its own or until you are seen in the office. Physical therapy for gait training, ambulation, and reinforcement of posterior hip precautions. Discharge Attestations Time Spent in Discharge Care*: greater than 30 min Specific Discharge Activities: educating patient, documenting/other paperwork and evaluating patient/reviewing data Quality Metrics Clinical Quality Measures [ No reported AMI, CVA or VTE this stay] Coding Level of Care Code Acute Code for Chg Fwd Diagnoses Primary osteoarthritis of right hip M16.11 Intrapelvic protrusion of right acetabulum M24.7 History of total left hip arthroplasty Z96.642
== END 2025-02-09 17:07 | disposition home health service (06) ==
LOC: MEDSURG 13:31
PROVIDERS: Admitting Provider Specialist; PCP Family Medicine; Visit Provider Specialist
PROC: 8E0Y0CZ Robotic Assisted Procedure of Lower Extremity, Open Approach (ICD-10-PCS; CPT 27130; principal; 2025-02-07 11:30)
DX: M16.11 Unilateral primary osteoarthritis, right hip (principal); M24.7 Protrusio acetabuli; I10 Essential (primary) hypertension; E78.5 Hyperlipidemia, unspecified; Z85.3 Personal history of malignant neoplasm of breast; F41.9 Anxiety disorder, unspecified; J45.909 Unspecified asthma, uncomplicated
CPT/HCPCS: 27130; 36415; 51702; 72170; 80048; 85014; 85018; 85025; 97110; 97116; 97161; 97166; 97530; 97535; A4216; C1776; G0378; J0131; J0666; J0690; J2405; J2704; J3010; J3373; J3490; J7030; J9999

== ENCOUNTER → 2025-02-20 09:06 | Outpatient (BNVA) | payer MEDICARE, OTHER, SELFPAY | PROVIDERS: PCP Family Medicine; Visit Provider Specialist | DX: Z98.890 Other specified postprocedural states (principal); Z96.642 Presence of left artificial hip joint | CPT/HCPCS: 73502; 99024 ==

== ENCOUNTER → 2025-05-06 13:35 | Outpatient (BNVA) | payer MEDICARE, OTHER, SELFPAY | PROVIDERS: PCP Family Medicine; Visit Provider Specialist | DX: Z98.890 Other specified postprocedural states (principal); Z96.642 Presence of left artificial hip joint | CPT/HCPCS: 73502; 99024 ==

== ENCOUNTER → 2025-05-08 11:56 | Outpatient (BNVA) | payer MEDICARE, OTHER, SELFPAY | PROVIDERS: PCP Family Medicine; Visit Provider Family Medicine | DX: I10 Essential (primary) hypertension (principal) | CPT/HCPCS: 80053; 81003; 85025 ==